=== PATIENT | male | born 1955 | race Caucasian/White ===

== ENCOUNTER 2019-05-30 12:22 | Emergency (ER) | payer OTHER ==
[2019-05-30 12:45] VITALS: TEMP 98.4
[2019-05-30] MEDS ORDERED: SODIUM CHLORIDE 0.9% 1,000 ML IV STA (13:30)
[2019-05-30] MEDS ORDERED: LABETALOL 5 MG/ML VIAL MDV IVP STA ×2 (13:33→15:37)
[2019-05-30 13:51] LABS: Basophils % (A) 1 %; Eosinophils # (A) 0.3 k/uL (0-0.7); Eosinophils % (A) 5 %; HCT 40.9 % (39.0-53.0); HGB 14.3 gm/dL (13.0-17.5); Lymphocytes % (A) 35 %; MCH 32.7 pg (25.0-35.0); MCV 93.6 fL (80.0-100.0); Mean Platelet Volume 6.9; Monocytes # (A) 0.3 k/uL (0-1.0); Monocytes % (A) 6 %; Neutrophils # (A) 2.9 k/uL (1.3-7.7); Neutrophils % (A) 51 %; Platelet Count 239 k/uL (150-450); RBC 4.37 m/uL (4.30-5.90); RDW 13.1 % (11.5-15.5); WBC 5.7 k/uL (3.8-10.6)
[2019-05-30 13:52] LABS: Appearance,Urine Clear (Clear); Bilirubin,Urine Negative (Negative); Blood,Urine Negative (Negative); Color,Urine Light Yellow; Glucose,Urine (UA) Negative (Negative); Ketones,Urine Negative (Negative); Leukocyte Esterase,Urine Negative (Negative); Nitrite,Urine Negative (Negative); PH, Urine 6.5 (5.0-8.0); Protein,Urine Negative (Negative); Specific Gravity,Urine 1.007 (1.001-1.035); Urobilinogen,Urine <2.0 mg/dL (<2.0)
--- NOTE | 2019-05-30 13:55 | XR ---
EXAMINATION TYPE: XR chest 2V DATE OF EXAM: 05/30/2019 COMPARISON: NONE TECHNIQUE: PA and lateral views submitted. HISTORY: Hypertension FINDINGS: The lungs are clear and there is no pneumothorax, pleural effusion, or focal pneumonia. Biapical pl eural. No overt failure. Inflation suggests COPD. Degenerative changes spine. Linear changes at the l ai bases most atelectasis. IMPRESSION: 1. COPD with basilar linear atelectasis favored over infiltrate.
[2019-05-30 13:58] LABS: Albumin 4.5 g/dL (3.5-5.0); Calcium 10.3 mg/dL (8.4-10.2); Potassium 4.4 mmol/L (3.5-5.1); Total Bilirubin 0.4 mg/dL (0.2-1.3); Total Protein 8.1 g/dL (6.3-8.2)
[2019-05-30] MEDS ORDERED: hydrALAZINE HCL 20 MG/ML 1 ML VIAL IVP STA (14:52)
--- NOTE | 2019-05-30 15:11 | ED ---
General Adult HPI - General Chief complaint: Recheck/Abnormal Lab/Rx Stated complaint: HTN sent by PCP Time Seen by Provider: 05/30/19 12:53 Source: patient Mode of arrival: ambulatory Limitations: no limitations - History of Present Illness Initial comments: Patient is a 63-year-old male presenting to emergency Department with complaints of elevated BP at his PCPs office today. PCP sent him to the ER. Patient admits to previously being on hypertensive medications approximately 6 months ago but his prescriptions have ran out and he moved to the area from [place] and has not found a PCP prior to today. Patient admits to a mild headache that he r ates a 2/10 today. Patient denies any blurry vision, chest pain, shortness of breath, abdominal pain, nausea, vomiting. Patient states his BP at the PCPs office was 210/100. Patient has no other complaints at this time. Upon arrival to ER, BP is 206/118, temp 98.4, pulse 69, 98% on room air, respirations 16. - Related Data Previous Rx's Medication Instructions Recorded Losartan [Cozaar] 50 mg PO DAILY 30 Days #30 tab 05/30/19 Metoprolol Tartrate [Lopressor] 50 mg PO BID 30 Days #60 tab 05/30/19 NIFEdipine XL [Procardia Xl] 90 mg PO DAILY 30 Days #30 tab 05/30/19 Allergies Allergy/AdvReac Type Severity Reaction Status Date / Time NSAIDS (Non-Steroidal AdvReac kidney Verified 05/30/19 13:07 Anti-Inflamma issues Review of Systems ROS Statement: Those systems with pertinent positive or pertinent negative responses have been documented in the HPI. ROS Other: All systems not noted in ROS Statement are negative. Past Medical History Past Medical History: Atrial Fibrillation, Hypertension Additional Past Medical History / Comment(s): Kidney stones History of Any Multi-Drug Resistant Organisms: None Reported Past Surgical History: Cholecystectomy, Tonsillectomy Past Psychological History: No Psychological Hx Reported, Depression Smoking Status: Current some day smoker Past Alcohol Use History: None Reported Past Drug Use History: None Reported General Exam - General Exam Comments Initial Comments: GENERAL: Well-appearing, well-nourished and in no acute distress. HEAD: Atraumatic, normocephalic. EYES: Pupils equal round and reactive to light, extraocular movements intact, sclera anicteric, conjunctiva are normal. ENT: TMs normal, nares patent, oropharynx clear without exudates. Moist mucous membranes. NECK: Normal range of motion, supple without lymphadenopathy or JVD. LUNGS: Breath sounds clear to auscultation bilaterally and equal. No wheezes rales or rhonchi. HEART: Regular rate and rhythm without murmurs, rubs or gallops. ABDOMEN: Soft, nontender, normoactive bowel sounds. No guarding, no rebound. No masses appreciated. : Deferred EXTREMITIES: Normal range of motion, no pitting or edema. No clubbing or cyanosis. NEUROLOGICAL: Cranial nerves II through XII grossly intact. Normal speech, normal gait. PSYCH: Normal mood, normal affect. SKIN: Warm, Dry, normal turgor, no rashes or lesions noted. Limitations: no limitations Course Vital Signs 05/30/19 05/30/19 05/30/19 12:40 13:00 13:30 Temperature 98.4 F Pulse Rate 69 73 70 Respiratory 16 15 16 Rate Blood Pressure 206/118 221/126 O2 Sat by Pulse 98 100 Oximetry 05/30/19 05/30/19 05/30/19 14:00 14:30 15:00 Temperature Pulse Rate 67 54 L 62 Respiratory 18 Rate Blood Pressure 216/128 208/116 200/113 O2 Sat by Pulse 100 Oximetry 05/30/19 05/30/19 05/30/19 15:15 15:30 15:48 Temperature Pulse Rate 60 64 66 Respiratory 16 16 Rate Blood Pressure 221/119 221/119 184/104 O2 Sat by Pulse 99 99 Oximetry 05/30/19 05/30/19 16:00 16:30 Temperature Pulse Rate 65 67 Respiratory 18 Rate Blood Pressure 184/104 208/120 O2 Sat by Pulse 100 Oximetry EKG Findings - EKG Comments: EKG Findings:: Ventricular rate 74, SD interval 154, QTC 448. Normal sinus rhythm. Voltage criteria for left ventricular hypertrophy. Medical Decision Making - Medical Decision Making Patient is a 63-year-old male presenting with hypertension sent from his PCP office today. Patient admits to being on prior hypertension medications however he's been out of them for approximate 6 months secondary to moving from [place] into the area. Patient was at his PCP office today with elevated blood pressure in the 220s so PCP sent him into the ER. BP on arrival was 206/118. Rest of vitals were normal. Patient's exam is unremarkable. Patient denies fever, chills, chest pain, shortness of breath, severe headache, blurry vision. Akiko ent was given fluids, labetalol and hydralazine. BP did improve slightly to 184/104. Patient expressed concern that he does not want to be admitted secondary to his requiring full-time care. Case was discussed with Dr. Hall. Patient will be restarted on his medications of Procardia, metoprolol, losartan and will follow-up with PCP in the next few days. Patient is in agreement with this plan his care. Patient is stable for discharge at this time. Strict return parameters were discussed with the patient he verbalizes understanding and agreement. - Lab Data Result diagrams: 05/30/19 13:00 05/30/19 13:00 Lab Results 05/30/19 05/30/19 05/30/19 Range/Units 13:00 13:00 13:00 WBC 5.7 (3.8-10.6) k/uL RBC 4.37 (4.30-5.90) m/uL Hgb 14.3 (13.0-17.5) gm/dL Hct 40.9 (39.0-53.0) % MCV 93.6 (80.0-100.0) fL MCH 32.7 (25.0-35.0) pg MCHC 35.0 (31.0-37.0) g/dL RDW 13.1 (11.5-15.5) % Plt Count 239 (150-450) k/uL Neutrophils % 51 % Lymphocytes % 35 % Monocytes % 6 % Eosinophils % 5 % Basophils % 1 % Neutrophils # 2.9 (1.3-7.7) k/uL Lymphocytes # 2.0 (1.0-4.8) k/uL Monocytes # 0.3 (0-1.0) k/uL Eosinophils # 0.3 (0-0.7) k/uL Basophils # 0.0 (0-0.2) k/uL Sodium 139 (137-145) mmol/L Potassium 4.4 (3.5-5.1) mmol/L Chloride 103 (98-107) mmol/L Carbon Dioxide 25 (22-30) mmol/L Anion Gap 11 mmol/L BUN 12 (9-20) mg/dL Creatinine 1.10 (0.66-1.25) mg/dL Est GFR (CKD-EPI)AfAm 83 (>60 ml/min/1.73 sqM) Est GFR (CKD-EPI)NonAf 72 (>60 ml/min/1.73 sqM) Glucose 92 (74-99) mg/dL Calcium 10.3 H (8.4-10.2) mg/dL Total Bilirubin 0.4 (0.2-1.3) mg/dL AST 23 (17-59) U/L ALT 19 L (21-72) U/L Alkaline Phosphatase 95 (38-126) U/L Total Protein 8.1 (6.3-8.2) g/dL Albumin 4.5 (3.5-5.0) g/dL Urine Color Light Yellow Urine Appearance Clear (Clear) Urine pH 6.5 (5.0-8.0) Ur Specific Bessie 1.007 (1.001-1.035) Urine Protein Negative (Negative) Urine Glucose (UA) Negative (Negative) Urine Ketones Negative (Negative) Urine Blood Negative (Negative) Urine Nitrite Negative (Negative) Urine Bilirubin Negative (Negative) Urine Urobilinogen <2.0 (<2.0) mg/dL Ur Leukocyte Esterase Negative (Negative) Disposition Clinical Impression: Hypertension Disposition: HOME SELF-CARE Condition: Stable Instructions (If sedation given, give patient instructions): Hypertension (ED) Additional Instructions: Please return to the Emergency Department if symptoms worsen or any other concerns, such as chest pain, severe headache, nausea, vomiting, difficulty breathing. Follow-up with PCP as discussed. Prescriptions: Losartan [Cozaar] 50 mg PO DAILY 30 Days #30 tab Metoprolol Tartrate [Lopressor] 50 mg PO BID 30 Days #60 tab NIFEdipine XL [Procardia Xl] 90 mg PO DAILY 30 Days #30 tab Is patient prescribed a controlled substance at d/c from ED?: No Referrals: Lacy Alvarado MD [Primary Care Provider] - 1-2 days
[2019-05-30] MEDS ORDERED: ONDANSETRON 4 MG/2 ML VIAL IVP STA (15:37)
[2019-05-30] MEDS ORDERED: SODIUM CHLORIDE 0.9% 500 ML 500 ML IV STA (15:37)
[2019-05-30 17:26] VITALS: BP 198/106; PULSE 70; RESP 16
== END 2019-05-30 17:25 | disposition home or self-care (01) ==
LOC: EC 12:22
DX: I10 Essential (primary) hypertension (principal); F17.200 Nicotine dependence, unspecified, uncomplicated; Z88.6 Allergy status to analgesic agent
CPT/HCPCS: 36415; 80053; 85025; 81003; 71046; 99284; 96374; 96375 ×2; 96376; 96361 ×4; J0360; J2405

== ENCOUNTER 2019-10-12 17:56 | Inpatient (IN) | payer OTHER ==
[~2019-10-12 17:56] MED LIST: IV FLUID CONTINUATION 500 ML IV ONE
[2019-10-12] MEDS ORDERED: SODIUM CHLORIDE 0.9% 1,000 ML IV STA (18:47)
[2019-10-12] MEDS ORDERED: SODIUM BICARB 8.4% 50 ML SYR (1 MEQ/ML) IV STA ×2 (18:48→19:49)
[2019-10-12] MEDS ORDERED: LORazepam 2 MG/ML INJ IV STA (19:08)
[2019-10-12 19:37] LABS: Basophils % (A) 0 %; Eosinophils % (A) 0 %; HCT 36.3 % (39.0-53.0); Lymphocytes # (A) 1.2 k/uL (1.0-4.8); Lymphocytes % (A) 12 %; MCHC 33.2 g/dL (31.0-37.0); MCV 96.3 fL (80.0-100.0); Mean Platelet Volume 8.5; Monocytes # (A) 0.3 k/uL (0-1.0); Monocytes % (A) 3 %; Neutrophils # (A) 8.8 k/uL (1.3-7.7); Neutrophils % (A) 85 %; Platelet Count 237 k/uL (150-450); RBC 3.76 m/uL (4.30-5.90); RDW 13.1 % (11.5-15.5); WBC 10.4 k/uL (3.8-10.6)
[2019-10-12] MEDS ORDERED: ASPIRIN 81 MG PO STA (19:49)
[2019-10-12] MEDS ORDERED: ATROPINE SULFATE 0.1 MG/ML 10ML SYRINGE IV STA (19:52)
[2019-10-12 20:00] LABS: ALT 42 U/L (4-49); AST 37 U/L (17-59); Acetaminophen <10.0 ug/mL; African American GFR (CKD) 66 (>60 ml/min/1.73 sqM); Albumin 4.1 g/dL (3.5-5.0); Alcohol <10 mg/dL; Alkaline Phosphatase 132 U/L (38-126); Anion Gap 11 mmol/L; Blood Urea Nitrogen 18 mg/dL (9-20); Carbon Dioxide 24 mmol/L (22-30); Chloride 99 mmol/L (98-107); Glucose 146 mg/dL (74-99); Non-African American GFR(CKD) 57 (>60 ml/min/1.73 sqM); Potassium 4.5 mmol/L (3.5-5.1); Salicylate <1.0 mg/dL; Sodium 134 mmol/L (137-145); Total Bilirubin 0.4 mg/dL (0.2-1.3); Total Protein 7.3 g/dL (6.3-8.2)
[2019-10-12] MEDS ORDERED: SODIUM CHLORIDE 0.9% 1,000 ML IV ONE (20:11)
[2019-10-12] MEDS ORDERED: HEPARIN SODIUM,PORCINE 5,000 UNIT/ML 1 ML VIAL IV ONE (20:12)
[2019-10-12] MEDS ORDERED: HEPARIN SODIUM,PORCINE 5,000 UNIT/ML 1 ML VIAL IV PRN (20:12)
--- NOTE | 2019-10-12 20:13 | ED ---
General Adult HPI - General Chief complaint: Recheck/Abnormal Lab/Rx Stated complaint: poss allergic rxn, shaking Time Seen by Provider: 10/12/19 18:37 Source: patient Mode of arrival: ambulatory Limitations: no limitations - History of Present Illness Initial comments: Dictation was produced using [employer] dictation software. please excuse any gramm atical, word or spelling errors. Chief Complaint: Patient is 64-year-old male presents today with epigastric pain. History of Present Illness: 64-year-old male who presents with agitation and restlessness and epigastric pain. Patient says that his epigastric pain feels like heartburn. Patient takes Kratom powder. He believes his symptoms are all from this herbal supplement. Patient's been taking the supplement for several months now. He states that he hasn't had any ill effects from this area today he has been complaining of epigastric pain. His concern that it is heartburn. Denies any diaphoresis. No radiation of symptoms. Patient states he has not had heartburn before. He does have a history of atrial fibrillation. no history of coronary artery disease. Patient does smoke. Reports he is trying to quit. Denies any associated diaphoresis. He does feel slightly nauseous however no vomiting. The ROS documented in this emergency department record has been reviewed and confirmed by me. Those systems with pertinent positive or negative responses have been documented in the HPI. All other systems are other negative and/or noncontributory. PHYSICAL EXAM: General Impression: Alert and oriented x3, tremulous HEENT: Normocephalic atraumatic, extra-ocular movements intact, pupils equal and reactive to light bilaterally, mucous membranes moist. Cardiovascular: Heart regular rate and rhythm, S1&S2 audible, no murmurs, rubs or gallops Chest: Lungs clear to auscultation bilaterally, no rhonchi, no wheeze, no rales Abdomen: Bowel sounds present, abdomen soft, non-tender, non-distended, no organomegaly Musculoskeletal: Pulses present and equal in all extremities, no peripheral edema Motor: no focal deficits noted Neurological: CN II-XII grossly intact, no focal motor or sensory deficits noted Skin: Intact with no visualized rashes Psych: Normal affect and mood ED course: 64-year-old male presents with agitation, heartburn symptoms. As upon arrival shows heart rate of 57, rest of vital signs within acceptable limits. There is concern that patient's symptoms are secondary to this herbal supplement. His initial EKG showed QRS of 120 that appears to be new. Poison controls contacted and recommended patient be given bicarb to see if he has any effect in patients QRS though this herbal supplement is not known to cause QRS widening. He reports that he's been taking his medication for several months without any ill effects.. Patient became progressively bradycardic with a heart rate in the 50s. His blood pressure did start to decrease. Patient states his heartburn symptoms are getting worse. Repeat EKG was performed showing findings of acute ST segment elevation MO. Patient had ST elevation in the high lateral leads with reciprocal changes in 3 and aVF. These appear to be dynamic changes when compared to his initial EKG upon arrival. Code STEMI was paged. Discussed patient is a Dr. Joelle will be taking patient to the lab[facility]. Pending discussion with sound physician group. Patient treated with aspirin and heparin. EKG interpretation: Ventricular rate 44, sinus bradycardia,. 170, QS 122, QTc 439, ST segment elevation in the high lateral leads with reciprocal changes in 3 and aVF. - Related Data Previous Rx's Medication Instructions Recorded Losartan [Cozaar] 50 mg PO DAILY 30 Days #30 tab 05/30/19 Metoprolol Tartrate [Lopressor] 50 mg PO BID 30 Days #60 tab 05/30/19 NIFEdipine XL [Procardia Xl] 90 mg PO DAILY 30 Days #30 tab 05/30/19 Allergies Allergy/AdvReac Type Severity Reaction Status Date / Time NSAIDS (Non-Steroidal AdvReac kidney Verified 10/12/19 18:12 Anti-Inflamma issues Review of Systems ROS Statement: Those systems with pertinent positive or pertinent negative responses have been documented in the HPI. ROS Other: All systems not noted in ROS Statement are negative. Past Medical History Past Medical History: Atrial Fibrillation, Hypertension Additional Past Medical History / Comment(s): Kidney stones, chronic back pain History of Any Multi-Drug Resistant Organisms: None Reported Past Surgical History: Cholecystectomy, Tonsillectomy Past Psychological History: No Psychological Hx Reported, Depression Smoking Status: Current some day smoker Past Alcohol Use History: None Reported Past Drug Use History: None Reported General Exam Limitations: no limitations Course Vital Signs 10/12/19 10/12/19 10/12/19 18:07 18:22 18:30 Temperature 97.5 F L Pulse Rate 57 L 53 L Respiratory 20 18 Rate Blood Pressure 107/67 130/73 O2 Sat by Pulse 96 92 L 91 L Oximetry 10/12/19 10/12/19 10/12/19 18:40 18:50 19:00 Temperature Pulse Rate 54 L 49 L 48 L Respiratory 13 20 19 Rate Blood Pressure 52/39 88/55 88/55 O2 Sat by Pulse 88 L 88 L 93 L Oximetry 10/12/19 10/12/19 10/12/19 19:10 19:33 19:54 Temperature Pulse Rate 43 L 42 L 42 L Respiratory 20 18 18 Rate Blood Pressure 128/72 71/41 100/58 O2 Sat by Pulse 92 L 90 L 94 L Oximetry 10/12/19 10/12/19 20:09 20:16 Temperature 97.7 F Pulse Rate 46 L 45 L Respiratory 18 18 Rate Blood Pressure 107/74 85/57 O2 Sat by Pulse 91 L 92 L Oximetry Medical Decision Making - Lab Data Result diagrams: 10/12/19 19:22 10/12/19 19:22 Lab Results 10/12/19 10/12/19 10/12/19 Range/Units 19:22 19:22 19:22 WBC 10.4 (3.8-10.6) k/uL RBC 3.76 L (4.30-5.90) m/uL Hgb 12.0 L (13.0-17.5) gm/dL Hct 36.3 L (39.0-53.0) % MCV 96.3 (80.0-100.0) fL MCH 32.0 (25.0-35.0) pg MCHC 33.2 (31.0-37.0) g/dL RDW 13.1 (11.5-15.5) % Plt Count 237 (150-450) k/uL Neutrophils % 85 % Lymphocytes % 12 % Monocytes % 3 % Eosinophils % 0 % Basophils % 0 % Neutrophils # 8.8 H (1.3-7.7) k/uL Lymphocytes # 1.2 (1.0-4.8) k/uL Monocytes # 0.3 (0-1.0) k/uL Eosinophils # 0.0 (0-0.7) k/uL Basophils # 0.0 (0-0.2) k/uL Sodium 134 L (137-145) mmol/L Potassium 4.5 (3.5-5.1) mmol/L Chloride 99 (98-107) mmol/L Carbon Dioxide 24 (22-30) mmol/L Anion Gap 11 mmol/L BUN 18 (9-20) mg/dL Creatinine 1.33 H (0.66-1.25) mg/dL Est GFR (CKD-EPI)AfAm 66 (>60 ml/min/1.73 sqM) Est GFR (CKD-EPI)NonAf 57 (>60 ml/min/1.73 sqM) Glucose 146 H (74-99) mg/dL Osmolality 290 (280-301) mosm/kg Plasma Lactic Acid Vinny 2.5 H* (0.7-2.0) mmol/L Calcium 9.0 (8.4-10.2) mg/dL Total Bilirubin 0.4 (0.2-1.3) mg/dL AST 37 (17-59) U/L ALT 42 (4-49) U/L Alkaline Phosphatase 132 H (38-126) U/L Total Protein 7.3 (6.3-8.2) g/dL Albumin 4.1 (3.5-5.0) g/dL Salicylates <1.0 mg/dL Acetaminophen <10.0 ug/mL Serum Alcohol <10 mg/dL Critical Care Time Critical Care Time: Yes (32) Disposition Clinical Impression: STEMI (ST elevation myocardial infarction) Disposition: ADMITTED IP TO THIS [facility] Condition: Critical Referrals: Brown Millan [Primary Care Provider] - 1-2 days Decision Time: 20:32
[2019-10-12] MEDS ORDERED: HEPARIN SOD,PORK IN 0.45% NACL 25,000 UNIT in 0.45% NACL 1 250ML.BAG IV SCH (20:15)
[2019-10-12] MEDS ORDERED: LIDOCAINE 1% INJ 10MG/ML (20 ML MDV) ONE (20:24)
[2019-10-12] MEDS ORDERED: NALOXONE 0.4 MG/ML 1 ML VIAL IV PRN (20:28)
--- NOTE | 2019-10-12 20:29 | XR ---
EXAMINATION TYPE: XR chest 1V portable DATE OF EXAM: 10/12/2019 COMPARISON: 05/30/2019 HISTORY: Chest pain TECHNIQUE: FINDINGS: There is no heart failure. There is some coarsening of the interstitial markings there is n o pleural effusion. There are no hilar masses. IMPRESSION: Mild pulmonary fibrotic changes. Lung markings increased compared to old exam. No heart f ailure seen.
[2019-10-12] MEDS ORDERED: LIDOCAINE 1% INJ 10MG/ML (20 ML MDV) SQ ONE (20:42)
[2019-10-12] MEDS ORDERED: SODIUM CHLORIDE 0.9% 1,000 ML IV SCH (21:00)
[2019-10-12] MEDS ORDERED: RX INFO: IV CONTRAST WAS GIVEN 1 EACH MISC MISCELLANE PRN (21:00)
[2019-10-12] MEDS ORDERED: IOPAMIDOL-370 125ML BTL INJ ONE (21:03)
--- NOTE | 2019-10-12 21:10 | P.CRDCN ---
History of Present Illness Consult date: 10/12/19 Chief complaint: Chest pain History of present illness: This is a 62-year-old gentleman who is somewhat poor historian presented to the emergency room because he was not feeling well. The initial presentation was with agitation as well as restlessness. Subsequently the patient started experiencing epigastric discomfort. He described as a heartburn. No radiation to the arms, neck, shoulders, or back. An EKG was performed in the emergency department and that was called as acute ST segment elevation. Because of that the general labor was called and an emergent heart catheterization was performed and revealed mild nonobstructive coronary artery disease. The left ventricular end- diastolic pressure was elevated at 20 mmHg. The procedure was performed without any complication. Beside that and in the emergency department as well as in the cardiac general labor the patient has been bradycardic with a heart rate in the 40s and also with marginally low blood pressure in the 90s millimeters mercury. At home he was receiving metoprolol which is on hold at this point. He is known to have history of paroxysmal atrial fibrillation as well as history of smoking as well as history of drug abuse. By the end of the procedure, the patient was c hest pain-free. The chest x-ray did not show any acute abnormalities. The blood work over old came in to be unremarkable except for plasma lactic acid at 2.5. The WBC as well as hemoglobin are within normal limits. Past Medical History Past Medical History: Atrial Fibrillation, Hypertension Additional Past Medical History / Comment(s): Kidney stones, chronic back pain History of Any Multi-Drug Resistant Organisms: None Reported Past Surgical History: Cholecystectomy, Tonsillectomy Past Psychological History: No Psychological Hx Reported, Depression Smoking Status: Current some day smoker Past Alcohol Use History: None Reported Past Drug Use History: None Reported Medications and Allergies Home Medications Medication Instructions Recorded Confirmed Type Losartan [Cozaar] 50 mg PO DAILY 30 Days #30 tab 05/30/19 Rx Metoprolol Tartrate [Lopressor] 50 mg PO BID 30 Days #60 tab 05/30/19 Rx NIFEdipine XL [Procardia Xl] 90 mg PO DAILY 30 Days #30 tab 05/30/19 Rx Allergies Allergy/AdvReac Type Severity Reaction Status Date / Time NSAIDS (Non-Steroidal AdvReac kidney Verified 10/12/19 18:12 Anti-Inflamma issues Physical Exam Vitals: Vital Signs Temp Pulse Resp BP Pulse Ox 02/07/20 20:16 45 L 18 85/57 92 L 10/12/19 20:09 97.7 F 46 L 18 107/74 91 L 10/12/19 19:54 42 L 18 100/58 94 L 10/12/19 19:33 42 L 18 71/41 90 L 10/12/19 19:10 43 L 20 128/72 92 L 10/12/19 19:00 48 L 19 88/55 93 L 10/12/19 18:50 49 L 20 88/55 88 L 10/12/19 18:40 54 L 13 52/39 88 L 10/12/19 18:30 53 L 18 130/73 91 L 10/12/19 18:22 92 L 10/12/19 18:07 97.5 F L 57 L 20 107/67 96 Intake and Output 10/12/19 10/12/19 10/12/19 06:59 14:59 22:59 Intake Total 75 Balance 75 Intake: IV 75 Other: Weight 102.058 kg - Constitutional General appearance: no acute distress - Respiratory Respiratory: bilateral: CTA - Cardiovascular Rhythm: regular Heart sounds: normal: S1, S2 Results 10/12/19 19:22 10/12/19 19:22 Cardiac Enzymes 10/12/19 10/12/19 Range/Units 19:22 19:22 AST 37 (17-59) U/L Troponin I <0.012 (0.000-0.034) ng/mL CBC 10/12/19 Range/Units 19:22 WBC 10.4 (3.8-10.6) k/uL RBC 3.76 L (4.30-5.90) m/uL Hgb 12.0 L (13.0-17.5) gm/dL Hct 36.3 L (39.0-53.0) % Plt Count 237 (150-450) k/uL Comprehensive Metabolic Panel 10/12/19 Range/Units 19:22 Sodium 134 L (137-145) mmol/L Potassium 4.5 (3.5-5.1) mmol/L Chloride 99 (98-107) mmol/L Carbon Dioxide 24 (22-30) mmol/L BUN 18 (9-20) mg/dL Creatinine 1.33 H (0.66-1.25) mg/dL Glucose 146 H (74-99) mg/dL Calcium 9.0 (8.4-10.2) mg/dL AST 37 (17-59) U/L ALT 42 (4-49) U/L Alkaline Phosphatase 132 H (38-126) U/L Total Protein 7.3 (6.3-8.2) g/dL Albumin 4.1 (3.5-5.0) g/dL Current Medications Generic Name Dose Route Start Last Admin Trade Name Freq PRN Reason Stop Dose Admin Heparin Sodium (Porcine) 0 unit 10/12/19 20:12 Heparin IV PER PROTOCOL PRN Low PTT Protocol Sodium Chloride 1,000 mls @ 999 mls/hr 10/12/19 20:11 10/12/19 20:11 Saline 0.9% IV 10/12/19 21:11 999 mls/hr .Q1H1M ONE Administration Heparin Sodium/Sodium Chloride 250 mls @ 10 mls/hr 10/12/19 20:15 25,000 unit/ Sodium Chloride IV .Q24H JOSEF Protocol 9.798 UNITS/KG/HR Sodium Chloride 1,000 mls @ 75 mls/hr 10/12/19 21:00 Saline 0.9% IV 10/13/19 02:01 .[id number] [facility] Miscellaneous Information 1 each 10/12/19 21:00 Rx Info: Iv Contrast Was Given MISCELLANE 10/14/19 21:00 DAILY PRN Per Protocol Naloxone HCl 0.2 mg 10/12/19 20:28 Narcan IV Q2M PRN Opioid Reversal Intake and Output 10/12/19 10/12/19 10/12/19 06:59 14:59 22:59 Intake Total 75 Balance 75 Intake: IV 75 Other: Weight 102.058 kg Patient Weight 10/13/19 06:59 Weight 102.058 kg 10/12/19 19:22 10/12/19 19:22 Assessment and Plan Assessment: Assessment #1 epigastric discomfort #2 sinus bradycardia #3 hypotension #4 paroxysmal atrial fibrillation #5 history of smoking Plan #1 an emergent heart catheterization revealed might CAD #2 continue holding any AV shaneka jose roberto agents #3 obtain an echocardiogram #4 check TSH and free T4 #4 standard groin care #5 follow-up with the patient
--- NOTE | 2019-10-12 22:58 | CC ---
CARDIAC CATHETERIZATION REPORT October 12, 2019. PERFORMING PHYSICIAN: Jose Eduardo Lai MD. PROCEDURE PERFORMED: 1. Selective right and left coronary angiogram. 2. Left heart catheterization. INDICATION: This is a 64-year-old gentleman with history of paroxysmal atrial fibrillation as well as history of smoking and history of drug abuse, as well, who presented to the hospital complaining of chest discomfort. He was seen in the emergency department and evaluated where an EKG was performed and revealed and the EKG in the emergency department was called for acute ST-elevation myocardial infarction. Because of that, the patient was taken emergently to the cardiac electronic lab technician. APPROACH: Right common femoral artery. COMPLICATION: None. LEVEL OF SEDATION: Moderate with sedation length of 14 minutes. PROCEDURE DESCRIPTION: After obtaining an informed consent, the patient was brought to the cardiac electronic lab technician. The right common femoral artery was cannulated using micropuncture technique, the micropuncture wire passed easily then I placed a 6-Namibian sheath 11 cm at the right common femoral artery. I did perform selective right and left coronary angiogram using JR4 and JL3.5 catheters. The JR4 and JL4 catheters. Left heart catheterization was performed using JR4 catheter which crossed the aortic valve then I did pullback across aortic valve. The procedure was completed without any complication. SELECTIVE CORONARY ANGIOGRAM: 1. The right coronary artery is a large caliber vessel and it is a dominant vessel. The RCA has mild disease in the midportion. Distally bifurcates into PDA and PLV branches both appeared to be angiographically normal. 2. The left main is angiographically normal. It bifurcates into LCX and LAD. 3. The LCX is a large caliber vessel. It is a nondominant vessel. The proximal circ appeared to be normal and gives rise into a large OM branch which appeared to have mild disease only. The circumflex continues after that as a small-caliber vessel in the AV groove. 4. The LAD: The LAD appeared to be angiographically normal. In the very proximal portion gives rise into a large the into a diagonal branch which seems to be angiographically normal and in the midportion gives rise into a second diagonal branch which seems to be angiographically normal. HEMODYNAMIC: The LVEDP was 20 mmHg without significant gradient across aortic valve. CONCLUSION: 1. Mild nonobstructive coronary artery disease. 2. Elevated left ventricular end-diastolic pressure. POSTPROCEDURE MANAGEMENT: 1. Medical treatment. 2. Follow up with the patient. MMZAYDA / YVONNEN: [id number] /
[2019-10-13] MEDS ORDERED: ZOLPIDEM 5 MG TAB PO SCH
--- NOTE | 2019-10-13 00:22 | P.HPIM ---
History of Present Illness H&P Date: 10/12/19 Chief Complaint: agitation and restless, heart burn 64-year-old male with history of hypertension Patient reports that he came into the hospital due to feeling agitated and r estless. He was also having some heartburn reported burning sensation retrosternally extending all the way from the stomach up to his throat, rated the pain as 8 out of 10 in severity not associated with any nausea vomiting dizziness lightheadedness shortness of breath or sweating. Patient denies any cardiac history in the past. His initial EKG in the ED which is not available for my review at this time showed wide QRS patient takes kratom powder , that he tolerated for many months now, denies overdosing. poison control contacted and recommended giving patient bicarb and repeat EKG. at that point his vital signs were stable However later on during that's ED course he developed bradycardia and his blood pressure starting going down. A repeat EKG suggested ST depression in lead [address] elevation in leads 1 and 2. 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 Cath was performed showed nonobstructive minimal disease. Currently patient continues to be bradycardic and blood pressure low with systolic in the 90s. Patient is given IV fluid however he is asymptomatic denies any chest pain or trouble breathing denies any lightheadedness or dizz iness. There is also suspicion of IV drug abuse however patient is not clearly admitting 2 that we are still waiting for urine drug screen to be performed. Cardiology recommended to avoid AV shaneka blockers at this time and to continue with supportive care Patient also found to have elevated lactic acid and slightly elevated creatinine He tolerated procedure well, currently only complains of difficulty sleeping Review of Systems Pertinent positives as noted in HPI. All other systems were reviewed and are negative Past Medical History Past Medical History: Atrial Fibrillation, Hypertension Additional Past Medical History / Comment(s): Kidney stones, chronic back pain History of Any Multi-Drug Resistant Organisms: None Reported Past Surgical History: Cholecystectomy, Tonsillectomy Past Psychological History: No Psychological Hx Reported, Depression Smoking Status: Current some day smoker Past Alcohol Use History: None Reported Past Drug Use History: None Reported - Past Family History Father History Unknown: Yes Mother History Unknown: Yes Medications and Allergies Home Medications Medication Instructions Recorded Confirmed Type Losartan [Cozaar] 50 mg PO DAILY 30 Days #30 tab 05/30/19 10/12/19 Rx Metoprolol Tartrate [Lopressor] 50 mg PO BID 30 Days #60 tab 05/30/19 10/12/19 Rx NIFEdipine XL [Procardia Xl] 90 mg PO DAILY 30 Days #30 tab 05/30/19 10/12/19 Rx buPROPion HCL [buPROPion HCL SR] 150 mg PO BID 10/12/19 10/12/19 History Allergies Allergy/AdvReac Type Severity Reaction Status Date / Time NSAIDS (Non-Steroidal AdvReac kidney Verified 10/12/19 23:13 Anti-Inflamma issues Physical Exam Vitals: Vital Signs Temp Pulse Resp BP Pulse Ox 10/12/19 20:16 45 L 18 85/57 92 L 10/12/19 20:09 97.7 F 46 L 18 107/74 91 L 10/12/19 19:54 42 L 18 100/58 94 L 10/12/19 19:33 42 L 18 71/41 90 L 10/12/19 19:10 43 L 20 128/72 92 L 10/12/19 19:00 48 L 19 88/55 93 L 10/12/19 18:50 49 L 20 88/55 88 L 10/12/19 18:40 54 L 13 52/39 88 L 10/12/19 18:30 53 L 18 130/73 91 L 10/12/19 18:22 92 L 10/12/19 18:07 97.5 F L 57 L 20 107/67 96 Intake and Output 10/12/19 10/12/19 10/12/19 06:59 14:59 22:59 Intake Total 75 Balance 75 Intake: IV 75 Other: Weight 102.058 kg Constitutional: No acute distress, conversant, pleasant Eyes: Anicteric sclerae, moist conjunctiva, no lid-lag Pupils equal round reactive to light ENMT: NC/AT Oropharynx clear, no erythema, exudates Neck: Supple, FROM, no masses, or JVD No carotid bruits No thyromegaly Lungs: Clear to auscultation Clear to percussion Normal respiratory effort, no accessory muscle use Cardiovascular: Heart regular in rate and rhythm, No murmurs, gallops, or rubs No peripheral edema Abdominal: Soft Nontender, no guarding, rebound or rigidity Abdomen moving with respiration Normoactive bowel sounds No hepatomegaly, No splenomegaly No palpable mass No abdominal wall hernia noted Skin: Normal temperature, tone, texture, turgor No induration No subcutaneous nodules No rash, lesions No ulcers Extremities: Right groin examined site of left heart cath unremarkable no ecchymosis no swelling no bruit. No digital cyanosis No clubbing Pedal pulses intact and symmetrical Radial pulses intact and symmetrical No calf tenderness Psychiatric: Alert and oriented to person, place and time Appropriate affect fair judgement Neuro Muscles Strength 5/5 in all 4 extremities Sensation to light touch grossly present throughout Cranial nerves II-XII grossly intact No focal sensory deficits Lymphatics: no palpable cervical or supraclavicular , or inguinal lymph nodes Results CBC & Chem 7: 10/12/19 19:22 10/12/19 19:22 Labs: Abnormal Lab Results - Last 24 Hours (Table) 10/12/19 10/12/19 10/12/19 Range/Units 19:22 19:22 19:22 RBC 3.76 L (4.30-5.90) m/uL Hgb 12.0 L (13.0-17.5) gm/dL Hct 36.3 L (39.0-53.0) % Neutrophils # 8.8 H (1.3-7.7) k/uL Sodium 134 L (137-145) mmol/L Creatinine 1.33 H (0.66-1.25) mg/dL Glucose 146 H (74-99) mg/dL Plasma Lactic Acid Vinny 2.5 H* (0.7-2.0) mmol/L Alkaline Phosphatase 132 H (38-126) U/L Assessment and Plan Assessment: 64-year-old male with hypertension. Questionable drug abuse. Patient takes kratom powder at home for many months now. Comes in today due to agitation feeling restless and heartburn. 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 due to suspected STEMI however his left heart cath showed minimal nonobstructive coronary artery disease him a cardiology recommended medical therapy and to avoid AV shaneka blockers at this time Continue with supportive care and monitoring overnight anticipated length of stay less than two midnight Plan: bradycardia and hypotension EKG with acute ST changes possible Kratom poweder overdose lactic acidosis left heart cath showed , minimal non obstructive disease cardiology following hold AV shaneka blockers IVF hydration cardiac monitoring hold TRIPP inhibitor due to hypotension and slightly elevated renal function tobacco smoking counseled to quit smoking nicotine replacement therapy offered mild anemia paitent reported positive cologuard test at home plans for OP colonoscopy, patient never had one in his life DVT ppx heparin sc tid CODE STATUS:full code Discussed with: Patient, ER, RN Anticipated length of stay < than [address]: home A total of 60 minutes was spent on the care of this complex patient more than 50% of the time was spent in counseling and care coordination.
[2019-10-13 00:46] LABS: Amphetamine Screen,Urine Not Detected (NotDetected); Barbiturate Screen,Urine Not Detected (NotDetected); Benzodiazepines Screen,Urine Detected (NotDetected); Cocaine Screen,Urine Not Detected (NotDetected); Methadone Screen, Urine Not Detected (NotDetected); Opiate Screen,Urine Not Detected (NotDetected); Oxycodone Screen, Urine Not Detected (NotDetected); Phencyclidine Screen,Urine Not Detected (NotDetected); Tricyclic Antidepressant,Urine Not Detected (NotDetected); Urn Cannabinoid Scrn Not Detected (NotDetected)
[2019-10-13] MEDS: PANTOPRAZOLE 40 MG TABLET PO SCH ×3 (01:10→17:40)
[2019-10-13] MEDS ORDERED: LORazepam 0.5 MG TAB PO ONE (01:53)
--- NOTE | 2019-10-13 02:11 | XR ---
EXAMINATION TYPE: XR chest 1V portable DATE OF EXAM: 10/13/2019 COMPARISON: Yesterday HISTORY: Short of breath TECHNIQUE: FINDINGS: Heart is normal. Lungs are clear of infiltrate. There is small linear density in the left l ower lobe. There is no pleural effusion. There are no hilar masses. There are chest leads. IMPRESSION: Mild subsegmental atelectasis left lower lobe slightly more than yesterday. Normal heart.
[2019-10-13] MEDS ORDERED: LORazepam 1 MG TAB PO STA (02:18)
[2019-10-13] MEDS ORDERED: IPRATROPIUM-ALBUTEROL 3 ML NEB INHALATION PRN (02:19)
[2019-10-13] MEDS ORDERED: LORazepam 1 MG TAB PO PRN (02:19)
[2019-10-13 07:04] LABS: African American GFR (CKD) >90 (>60 ml/min/1.73 sqM); Anion Gap 8 mmol/L; Blood Urea Nitrogen 21 mg/dL (9-20); Calcium 8.5 mg/dL (8.4-10.2); Carbon Dioxide 26 mmol/L (22-30); Chloride 102 mmol/L (98-107); Glucose 92 mg/dL (74-99); Non-African American GFR(CKD) 80 (>60 ml/min/1.73 sqM); Potassium 4.2 mmol/L (3.5-5.1); Sodium 136 mmol/L (137-145)
[2019-10-13] MEDS: NICOTINE 14MG/24HR PATCH TRANSDERM SCH (08:57)
[2019-10-13] MEDS ORDERED: LORazepam 0.5 MG TAB PO PRN (08:58)
[2019-10-13] MEDS ORDERED: BUMETANIDE 0.25 MG/ML 4 ML VIAL IVP STA (08:59)
--- NOTE | 2019-10-13 09:11 | P.PN ---
Subjective Chart was reviewed patient was seen and examined. Patient was admitted last night with shortness of breath found EKG changes consistent with ST segment elevations in leads 1 and aVL and taken to cardiac catheterization which showed only mild nonobstructive disease. Other problems on presentation was slightly elevated lactic acid and creatinine which will normalized with IV fluids. Overnight patient respiratory status worsened and he had to be placed on high flow nasal cannula. No new events overnight otherwise. This morning I'm seeing the patient he is up in the bed. He is feeling quite comfortable and does not report any significant problems. He states that he is not short of breath does not have any chest pain. Further questioning he reports couple weeks of exertional dyspnea, cough productive of yellow sputum and occasional mild leg swelling. He does stent to prop the head of his bed up a little bit. He denies any episodes of chest pain. Patient has significant history of smoking. He denies any drug use and denies any recent history of drinking. Objective - Vital Signs Vital signs: Vital Signs Temp 98.0 F 10/13/19 07:47 Pulse 63 10/13/19 07:47 Resp 20 10/13/19 07:47 BP 156/88 10/13/19 07:47 Pulse Ox 96 10/13/19 08:49 Intake & Output 10/12/19 10/13/19 10/13/19 18:59 06:59 18:59 Intake Total 75 Output Total 400 1400 Balance 75 -400 -1400 Weight 10.387 kg 104.6 kg Intake: IV 75 Output: Urine 400 1400 Other: Voiding Method Urinal Urinal # Voids 1 - Exam Vital Signs: I have reviewed the vital signs. GENERAL: Well-nourished, Well-developed , no apparent distress, cooperative Eyes: PERRL, extraoculry movements intact, clear conjunctiva Head: : Atraumatic external nose and ears, oropharyngeal mucosa is moist without lesions or exudates Neck: Symmetric, trachea midline, No thyromegaly, no masses or neck vain pulsation, no neck rigidity CVS: +S1/S2, No murmurs or gallops. Peripheral pulses 2+ and equal in all extremities. RESP: Unlabored respiratory effort. Breath sounds are diminished bilaterally, right lower lung villafuerte have crackles in the bases with few expiratory wheezes and rhonchi on the left is mostly diminished without significant wheezing Abdomen: Bowel sounds present in all 4 quadrants, Soft to palpation, Nontender/Nondistended, No hepatosplenomegaly, no hernias or masses, no CVA tnderness Musculoskeletal: Extremities w/o deformity, No cyanosis or clubbing, no joint swelling Skin: Warm, Dry. 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, motor strenght 5/5 i upper and lower extremities, no clonus, patellar DTRs 2+ and sympetrical Psych: Awake, Alert, & Oriented (AAO) x3 Appropriate mood and affect - Labs CBC & Chem 7: 10/12/19 19:22 10/13/19 05:40 Labs: Abnormal Lab Results - Last 24 Hours (Table) 10/12/19 10/12/19 10/12/19 Range/Units 19:22 19:22 19:22 RBC 3.76 L (4.30-5.90) m/uL Hgb 12.0 L (13.0-17.5) gm/dL Hct 36.3 L (39.0-53.0) % Neutrophils # 8.8 H (1.3-7.7) k/uL Sodium 134 L (137-145) mmol/L BUN (9-20) mg/dL Creatinine 1.33 H (0.66-1.25) mg/dL Glucose 146 H (74-99) mg/dL Plasma Lactic Acid Vinny 2.5 H* (0.7-2.0) mmol/L Alkaline Phosphatase 132 H (38-126) U/L U Benzodiazepines Scrn (NotDetected) 10/13/19 10/13/19 Range/Units 00:06 05:40 RBC (4.30-5.90) m/uL Hgb (13.0-17.5) gm/dL Hct (39.0-53.0) % Neutrophils # (1.3-7.7) k/uL Sodium 136 L (137-145) mmol/L BUN 21 H (9-20) mg/dL Creatinine (0.66-1.25) mg/dL Glucose (74-99) mg/dL Plasma Lactic Acid Vinny (0.7-2.0) mmol/L Alkaline Phosphatase (38-126) U/L U Benzodiazepines Scrn Detected H (NotDetected) Assessment and Plan Assessment: 1. Acute hypoxic respiratory failure Ronco to be multifactorial in a patient who is current smoker with productive cough, obesity, large volume IV fluid resuscitation, possible component of CHF I wonder if patient has been hypoxic for a longer period of time and had elevated lactic acid significantly changes with that At this point of time his renal function has normalized a history of good urine output We will stop his IV fluids Give dose of Bumex *Breathing treatments, Pulmicort and doxycycline giving the increased purulence in his sputum Increase activity up in the chair incentive spirometry Discontinue VQ scan, we will order stat d-dimer. If significantly elevated we'll proceed with CTA. His Well'sa score is actually quite low right now. He might need a CT of the chest at some point to evaluate for the presence of the atelectasis in the right lobe to rule out any cancers or masses. Patient will need home oxygen evaluation and discharge 2. Acute kidney injury His creatinine is stabbing lysed is normal today and he has good urine output I will obtain urinalysis to evaluate for any presence of proteinuria or RBCs as I don't see any clear-cut reason for his a candidate 3. Non Obstructive coronary artery disease Cardiology following 4. Lactic acidosis Resolved with IV fluids and oxygen supplementation 5. Hypertension Blood pressures the second right now and continue home medications with hold losartan 6. Anxiety and depression Continue home bupropion We will try to minimize use of benzodiazepines here in the hospital
[2019-10-13] MEDS: DOXYCYCLINE 100 MG CAP PO SCH ×2 (09:51→19:44)
[2019-10-13] MEDS: buPROPion SR 150 MG TABLET.ER PO SCH ×2 (09:55→19:44)
[2019-10-13 10:43] LABS: Appearance,Urine Clear (Clear); Bilirubin,Urine Negative (Negative); Blood,Urine Negative (Negative); Color,Urine Colorless; Glucose,Urine (UA) Negative (Negative); Ketones,Urine Negative (Negative); Leukocyte Esterase,Urine Negative (Negative); Nitrite,Urine Negative (Negative); PH, Urine 7.5 (5.0-8.0); Protein,Urine Negative (Negative); Specific Gravity,Urine 1.005 (1.001-1.035); Urobilinogen,Urine <2.0 mg/dL (<2.0)
--- NOTE | 2019-10-13 11:52 | CT ---
EXAMINATION TYPE: CT angio chest DATE OF EXAM: 10/13/2019 11:23 AM COMPARISON: None. HISTORY: Shortness of breath. CT DLP: 486.4 mGycm Automated exposure control for dose reduction was used. CONTRAST: CTA scan of the thorax is performed with IV Contrast, patient injected with 100 mL of Isovue 370, pul monary embolism protocol. . FINDINGS: There is atelectatic change at the lung bases. There is no significant axillary, mediastinal or hilar adenopathy. There is no evidence of pulmonary embolus. The aorta is normal in caliber without evidence of dissection. There is no pleural or pericardial fluid. The heart is mildly enlarged. There is a small sliding hiatal hernia. There is low-attenuation lesions in the upper pole of both kidneys. These likely represent cysts. Thi s could be confirmed with ultrasound. IMPRESSION: THIS EXAMINATION IS NEGATIVE FOR PULMONARY EMBOLUS.
--- NOTE | 2019-10-13 15:21 | P.CNPUL ---
History of Present Illness Consult date: 10/13/19 Requesting physician: Clif Sanderson Reason for consult: dyspnea, hypoxemia Chief complaint: Agitation, anxiety, shortness of breath History of present illness: This is a pleasant 64-year-old gentleman who follows with Dr. Millan as his primary care provider. He has a history of paroxysmal atrial fibrillation, hypertension, chronic back pain, nephrolithiasis. He has chronic and ongoing tobacco dependence. He has also gained approximately 30 pounds in the past several months. He had not been seen by a laboratory equipment installer in the past. No home inhalers. No home oxygen. He had been utilizing a herbal supplements called Kratom powder. Yesterday he was feeling quite agitated after taking it with some shortness of breath and palpitations and presented to the emergency room for the same. He was initially thought to be a STEMI and was taken to the fence laborer but was found to have nonobstructive coronary artery disease. He also had some bradycardia and hypotension and his beta blockers were placed on hold. Early this morning he had developed increasing shortness of breath and hypoxemia requiring high flow nasal cannula with 60% FiO2. We are consulted for the same. He is seen today in follow-up on the selective care unit. He is currently awake and alert in no acute distress. He denies any worsening shortness of breath, cough or congestion. Chest x-ray revealed mild subsegmental atelectasis of the left lower lobe. CT angiogram was performed and there was no evidence of pulmonary embolism. There is again some atelectatic changes in the lung bases otherwise no other abnormalities. He is currently on 4 L/m per nasal cannula with O2 saturation of 98%. He is afebrile. Hemodynamically stable. Sodium 136. Potassium 4.2. Bicarb 26. Creatinine 1.00. He's been initiated on DuoNeb inhalations, empiric antibiotics in the form of doxycycline, he is continued on Wellbutrin and a NicoDerm patch is in place. Review of Systems REVIEW OF SYSTEMS: CONSTITUTIONAL: Positive for 30 pound weight gain over the past several months. EYES: Denies change in vision. EARS, NOSE, MOUTH, THROAT: Denies headaches, denies sore throat. CARDIOVASCULAR: Denies chest pain, palpitations or syncopal episodes. RESPIRATORY: Positive for shortness of breath, cough, congestion no hemoptysis. GASTROINTESTINAL: Denies change in appetite, denies abdominal pain GENITOURINARY: Denies hematuria, denies infections. MUSKULOSKELETAL: Denies pain, denies swelling. INTEGUMENTARY: Denies rash, denies eczema. NEUROLOGICAL: Denies recent memory loss, no recent seizure activity. PSYCHIATRIC: Denies anxiety, denies depression. HEMATOLOGIC/LYMPHATIC: Denies anemia, denies enlarged lymph nodes. Past Medical History Past Medical History: Atrial Fibrillation, Hypertension Additional Past Medical History / Comment(s): Kidney stones, chronic back pain History of Any Multi-Drug Resistant Organisms: None Reported Past Surgical History: Cholecystectomy, Tonsillectomy Past Anesthesia/Blood Transfusion Reactions: No Reported Reaction Past Psychological History: No Psychological Hx Reported, Depression Smoking Status: Current some day smoker Past Alcohol Use History: None Reported Past Drug Use History: None Reported - Past Family History Father History Unknown: Yes Mother History Unknown: Yes Additional Family Medical History / Comment(s): The family states no significant medical family history. Medications and Allergies Home Medications Medication Instructions Recorded Confirmed Type Losartan [Cozaar] 50 mg PO DAILY 30 Days #30 tab 05/30/19 10/12/19 Rx Metoprolol Tartrate [Lopressor] 50 mg PO BID 30 Days #60 tab 05/30/19 10/12/19 Rx NIFEdipine XL [Procardia Xl] 90 mg PO DAILY 30 Days #30 tab 05/30/19 10/12/19 Rx buPROPion HCL [buPROPion HCL SR] 150 mg PO BID 10/12/19 10/12/19 History Allergies Allergy/AdvReac Type Severity Reaction Status Date / Time NSAIDS (Non-Steroidal AdvReac kidney Verified 10/12/19 23:13 Anti-Inflamma issues Physical Exam Vitals: Vital Signs Temp Pulse Pulse Resp BP BP Pulse Ox 10/13/19 12:00 98.4 F 61 18 158/86 98 10/13/19 08:49 96 10/13/19 07:47 98.0 F 63 20 156/88 96 10/13/19 03:24 98.5 F 58 L 18 122/80 94 L 10/13/19 02:25 91 L 10/13/19 01:35 59 L 18 116/63 93 L 10/13/19 00:35 57 L 17 99/62 93 L 10/13/19 00:00 97.1 F L 42 L 17 91/54 96 10/12/19 23:35 43 L 16 91/54 97 10/12/19 23:05 42 L 16 94/55 95 10/12/19 22:35 42 L 16 89/54 94 L 10/12/19 22:20 57 L 18 99/61 95 10/12/19 22:05 57 L 18 105/48 95 10/12/19 21:50 98.3 F 44 L 18 110/56 95 10/12/19 20:16 45 L 18 85/57 92 L 10/12/19 20:09 97.7 F 46 L 18 107/74 91 L 10/12/19 19:54 42 L 18 100/58 94 L 10/12/19 19:33 42 L 18 71/41 90 L 10/12/19 19:10 43 L 20 128/72 92 L 10/12/19 19:00 48 L 19 88/55 93 L 10/12/19 18:50 49 L 20 88/55 88 L 10/12/19 18:40 54 L 13 52/39 88 L 10/12/19 18:30 53 L 18 130/73 91 L 10/12/19 18:22 92 L 10/12/19 18:07 97.5 F L 57 L 20 107/67 96 Intake and Output 10/13/19 10/13/19 10/13/19 06:59 14:59 22:59 Intake Total 340 Output Total 400 2600 Balance -400 -2260 Intake: Oral 340 Output: Urine 400 2600 Other: Voiding Method Urinal Urinal # Voids 1 Weight 104.6 kg GENERAL EXAM: Alert, pleasant 64-year-old gentleman, on 4 L nasal cannula, comfortable in no apparent distress. HEAD: Normocephalic. EYES: Normal reaction of pupils, equal size. NOSE: Clear with pink turbinates. THROAT: No erythema or exudates. NECK: No masses, no JVD. CHEST: No chest wall deformity. LUNGS: Equal air entry with no crackles, wheeze, rhonchi or dullness. CVS: S1 and S2 normal with no audible murmur, regular rhythm. ABDOMEN: No hepatosplenomegaly, normal bowel sounds, no guarding or rigidity. SPINE: No scoliosis or deformity SKIN: No rashes CENTRAL NERVOUS SYSTEM: No focal deficits, tone is normal in all 4 extremities. EXTREMITIES: There is no peripheral edema. No clubbing, no cyanosis. Peripheral pulses are intact. Results - Laboratory Findings CBC and BMP: 10/12/19 19:22 10/13/19 05:40 PT/INR, D-dimer D-Dimer 1.97 mg/L FEU (<0.60) H 10/13/19 09:07 Abnormal lab findings: Abnormal Labs 10/12/19 10/12/19 10/12/19 19:22 19:22 19:22 RBC 3.76 L Hgb 12.0 L Hct 36.3 L Neutrophils # 8.8 H D-Dimer Sodium 134 L BUN Creatinine 1.33 H Glucose 146 H Plasma Lactic Acid Vinny 2.5 H* Alkaline Phosphatase 132 H U Benzodiazepines Scrn 10/13/19 10/13/19 10/13/19 00:06 05:40 09:07 RBC Hgb Hct Neutrophils # D-Dimer 1.97 H Sodium 136 L BUN 21 H Creatinine Glucose Plasma Lactic Acid Vinny Alkaline Phosphatase U Benzodiazepines Scrn Detected H - Diagnostic Findings Chest x-ray: image reviewed CT scan - chest: image reviewed Assessment and Plan Assessment: 1 Agitation and shortness of breath successfully secondary to herbal supplements for chronic pain in the form of Kratom powder 2 Acute hypoxemic respiratory failure secondary to suspected acute exacerbation of chronic obstructive pulmonary disease 3 Chronic and ongoing tobacco dependence 50 years 4 STEMI alert this admission with nonobstructive coronary artery disease per cardiac catheterization on 10/12/2019 5 History of hypertension 6 Recent weight gain of approximately 30 pounds over the past several months 7 Paroxysmal atrial fibrillation 8 Chronic back pain Plan: The patient was seen and evaluated by Dr. Heaton. CAT scan, chest x-ray and labs all reviewed. No evidence of any acute pulmonary disease. Possible COPD exacerbation in a patient with significant smoking history. The patient is anxious to go home. We will perform a 6 minute walk test to determine if home oxygen as needed. Would recommend short acting bronchodilators, inhaled corticosteroids/long-acting beta agonist. Avoid oral steroids due to his feelings of agitation/anxiety. He would benefit from a follow-up in our office where we can perform full pulmonary function testing to evaluate for the severity of COPD and make recommendations regarding maintenance medications. He is educated regarding the importance of complete smoking cessation. Continue his home Wellbutrin. Educated regarding the importance of weight loss. If not home today we'll continue to follow and make further recommendations based on his clinical status. I, the cosigning physician, performed a history & physical examination of the patient. Lungs sounds are clear, diminished. Maintaining good O2 saturations in the 90s on 4 L/m per nasal cannula. I discussed the assessment and plan of care with my nurse practitioner, Thea Cordoba. I attest to the above consultation as dictated by her. Time with Patient: Greater than 30
--- NOTE | 2019-10-13 15:28 | P.PN ---
Subjective Progress Note Date: 10/13/19 This is a 62-year-old gentleman who is somewhat poor historian presented to the emergency room because he was not feeling well. The initial presentation was with agitation as well as restlessness. Subsequently the patient started experiencing epigastric discomfort. He described as a heartburn. No radiation to the arms, neck, shoulders, or back. An EKG was performed in the emergency department and that was called as acute ST segment elevation. Because of that the laborer petroleum ref[employer] was called and an emergent heart catheterization was performed and revealed mild nonobstructive coronary artery disease. The left ventricular end- diastolic pressure was elevated at 20 mmHg. The procedure was performed without any complication. Beside that and in the emergency department as well as in the cardiac lab[facility] [employer] ref[employer] the patient has been bradycardic with a heart rate in the 40s and also with marginally low blood pressure in the 90s millimeters mercury. At home he was receiving metoprolol which is on hold at this point. He is known to have history of paroxysmal atrial fibrillation as well as history of smoking as well as history of drug abuse. By the end of the procedure, the patient was chest pain-free. The chest x-ray did not show any acute abnormalities. The blood work over old came in to be unremarkable except for plasma lactic acid at 2.5. The WBC as well as hemoglobin are within normal limits. 10/13: CTA of the chest was negative for pulmonary embolism. Heart rate has been running in the 50s and 60s. Echocardiogram report remains pending. Chest x-ray reveals mild subsegmental atelectasis. Patient's been afebrile, blood pressure 156/88, pulse ox 96% on 4 L. Sodium 136, potassium 4.2, chloride 102, CO2 26, BUN 21 creatinine 1. Patient became very anxious during the night and was george afua on a nonrebreather transitioned to high flow oxygen currently down to 4 L nasal cannula. Patient voices anxiety. He states that it is better at the time of evaluation. Nephrology has ordered a dose of Bumex 1 mg IV and patient started on doxycycline. Objective - Vital Signs Vital signs: Vital Signs Temp 98.0 F 10/13/19 07:47 Pulse 63 10/13/19 07:47 Resp 20 10/13/19 07:47 BP 156/88 10/13/19 07:47 Pulse Ox 96 10/13/19 08:49 Intake & Output 10/12/19 10/13/19 10/13/19 18:59 06:59 18:59 Intake Total 75 Output Total 400 1400 Balance 75 -400 -1400 Weight 10.387 kg 104.6 kg Intake: IV 75 Output: Urine 400 1400 Other: Voiding Method Urinal Urinal # Voids 1 - Exam Gen: This is 64-year-old male. Patient is resting in bed and appears to be comfortable and in no acute distress. HEENT: Head is atraumatic, normocephalic. Pupils equal, round. Sclerae is anicteric. NECK: Supple. No JVD. No lymphadenopathy. No thyromegaly. LUNGS: Scattered rhonchi. No intercostal retractions. HEART: Regular rate and rhythm. No murmur. ABDOMEN: Soft. Bowel sounds are present. No masses. No tenderness. EXTREMITIES: No pedal edema. No calf tenderness. Dorsalis pedis +2 bilaterally. NEUROLOGICAL: Patient is awake, alert and oriented x3. Cranial nerves 2 through 12 are grossly intact. - Labs CBC & Chem 7: 10/12/19 19:22 10/13/19 05:40 Labs: Abnormal Lab Results - Last 24 Hours (Table) 10/12/19 10/12/19 10/12/19 Range/Units 19:22 19:22 19:22 RBC 3.76 L (4.30-5.90) m/uL Hgb 12.0 L (13.0-17.5) gm/dL Hct 36.3 L (39.0-53.0) % Neutrophils # 8.8 H (1.3-7.7) k/uL Sodium 134 L (137-145) mmol/L BUN (9-20) mg/dL Creatinine 1.33 H (0.66-1.25) mg/dL Glucose 146 H (74-99) mg/dL Plasma Lactic Acid Vinny 2.5 H* (0.7-2.0) mmol/L Alkaline Phosphatase 132 H (38-126) U/L U Benzodiazepines Scrn (NotDetected) 10/13/19 10/13/19 Range/Units 00:06 05:40 RBC (4.30-5.90) m/uL Hgb (13.0-17.5) gm/dL Hct (39.0-53.0) % Neutrophils # (1.3-7.7) k/uL Sodium 136 L (137-145) mmol/L BUN 21 H (9-20) mg/dL Creatinine (0.66-1.25) mg/dL Glucose (74-99) mg/dL Plasma Lactic Acid Vinny (0.7-2.0) mmol/L Alkaline Phosphatase (38-126) U/L U Benzodiazepines Scrn Detected H (NotDetected) Assessment and Plan Plan: Assessment #1 epigastric discomfort #2 sinus bradycardia #3 hypotension #4 paroxysmal atrial fibrillation #5 history of smoking Plan #1 an emergent heart catheterization revealed mild CAD #2 continue holding any AV shaneka jose roberto agents #3 obtain an echocardiogram, report pending #4 TSH normal #4 standard groin care #5 follow-up with the patient Nurse practitioner note has been reviewed, I agree with the document and findings and plan of care. Patient has been seen and examined.
--- NOTE | 2019-10-13 16:48 | ECHOF ---
Referral Reason: MEASUREMENTS -------- HEIGHT: 175.3 cm WEIGHT: 104.3 kg BP: 122/80 RVIDd: 3.4 cm (< 3.3) IVSd: 1.3 cm (0.6 - 1.1) LVIDd: 4.4 cm (3.9 - 5.3) LVPWd: 1.3 cm (0.6 - 1.1) IVSs: 1.7 cm LVIDs: 3.2 cm LVPWs: 1.8 cm LA Diam: 3.8 cm (2.7 - 3.8) LAESV Index (A-L): 28.67 ml/m Ao Diam: 3.5 cm (2.0 - 3.7) AV Cusp: 2.7 cm (1.5 - 2.6) MV EXCURSION: 21.518 mm (> 18.000) MV EF SLOPE: 146 mm/s (70 - 150) EPSS: 0.7 cm MV E [place]: 1.04 m/s MV DecT: 217 ms MV A [place]: 0.58 m/s MV E/A Ratio: 1.80 RAP: 5.00 mmHg RVSP: 35.07 mmHg TAPSE: 21.84 mm FINDINGS -------- Sinus rhythm. This was a technically adequate study. The left ventricular size is normal. There is mild concentric left ventricular hypertrophy. Overa ll left ventricular systolic function is normal with, an EF between 60 - 65 %. The right ventricle is mildly enlarged. Normal LA size by volume 22+/-6 ml/m2. The right atrium is normal in size. Interatrial and interventricular septum intact. The aortic valve is trileaflet and appears structurally normal. Mild mitral regurgitation is present. Mild tricuspid regurgitation present. Right ventricular systolic pressure is normal at < 35 mmHg. There is no pulmonic regurgitation present. The aortic root size is normal. Normal inferior vena cava with normal inspiratory collapse consistent with estimated right atrial pre ssure of 5 mmHg. There is no pericardial effusion. CONCLUSIONS -------- 1. Sinus rhythm. 2. This was a technically adequate study. 3. The left ventricular size is normal. 4. There is mild concentric left ventricular hypertrophy. 5. Overall left ventricular systolic function is normal with, an EF between 60 - 65 %. 6. The right ventricle is mildly enlarged. 7. Normal LA size by volume 22+/-6 ml/m2. 8. The right atrium is normal in size. 9. Interatrial and interventricular septum intact. 10. The aortic valve is trileaflet and appears structurally normal. 11. Mild mitral regurgitation is present. 12. Mild tricuspid regurgitation present. 13. Right ventricular systolic pressure is normal at < 35 mmHg. 14. There is no pulmonic regurgitation present. 15. The aortic root size is normal. 16. Normal inferior vena cava with normal inspiratory collapse consistent with estimated right atrial pressure of 5 mmHg. 17. There is no pericardial effusion. SERVICE CENTER SUPERVISOR: Mary Ann Patrick RDCS
[2019-10-13] MEDS ORDERED: HYDROcodone/APAP 5-325MG 1 EACH TAB PO PRN (19:49)
[2019-10-13] MEDS: BUDESONIDE 0.5 MG/2 ML NEBU INHALATION SCH (20:36)
[2019-10-14 02:56] VITALS: RESP 18
[2019-10-14] MEDS: PANTOPRAZOLE 40 MG TABLET PO SCH (06:51)
--- NOTE | 2019-10-14 09:01 | P.PN ---
Subjective Patient is feeling much better this morning. He remains in room air and less agitated. Apparently he admitted to inhaling Kratom powder which could be a cause for his presenting symptoms. He denied any inhalational drugs yesterday including crack cocaine. Objective - Vital Signs Vital signs: Vital Signs Temp 97.4 F L 10/14/19 04:00 Pulse 61 10/14/19 04:00 Resp 18 10/14/19 04:00 BP 144/92 10/14/19 04:00 Pulse Ox 94 L 10/14/19 04:00 Intake & Output 10/13/19 10/14/19 10/14/19 18:59 06:59 18:59 Intake Total 570 Output Total 2600 Balance -2030 Weight 103.1 kg Intake: Oral 570 Output: Urine 2600 Other: Voiding Method Urinal Urinal # Voids 1 1 - Exam Vital Signs: I have reviewed the vital signs. GENERAL: Well-nourished, Well-developed , no apparent distress, cooperative Eyes: PERRL, extraoculry movements intact, clear conjunctiva Head: : Atraumatic external nose and ears, oropharyngeal mucosa is moist without lesions or exudates Neck: Symmetric, trachea midline, No thyromegaly, no masses or neck vain pulsation, no neck rigidity CVS: +S1/S2, No murmurs or gallops. Peripheral pulses 2+ and equal in all extremities. RESP: Unlabored respiratory effort. Breath sounds are diminished bilaterally, right lower lung [place] have crackles in the bases with few expiratory wheezes and rhonchi on the left is mostly diminished without significant wheezing Abdomen: Bowel sounds present in all 4 quadrants, Soft to palpation, Nontender/Nondistended, No hepatosplenomegaly, no hernias or masses, no CVA tnderness Musculoskeletal: Extremities w/o deformity, No cyanosis or clubbing, no joint swelling Skin: Warm, Dry. No rashes or lesions Neuro: test engine evaluator II-XII grossly intact, motor strenght 5/5 i upper and lower extremities, no clonus, patellar DTRs 2+ and sympetrical Psych: Awake, Alert, & Oriented (AAO) x3 Appropriate mood and affect - Labs CBC & Chem 7: 10/12/19 19:22 10/13/19 05:40 Labs: Abnormal Lab Results - Last 24 Hours (Table) 02/08/20 Range/Units 09:07 D-Dimer 1.97 H (<0.60) mg/L FEU Assessment and Plan Assessment: 1. Acute hypoxic respiratory failure Pulmonary service input appreciated [place] to be due to inhalation effects of Kratom powder Denied other drugs Currently on room air Cough expectoration have resolved 2. Acute kidney injury Resolved 3. Non Obstructive coronary artery disease Cardiology following 4. Lactic acidosis Resolved with IV fluids and oxygen supplementation 5. Hypertension Stable 6. Anxiety and depression Continue home bupropion Stable Plan for discharge home once cleared by cardiology and pulmonary service
[2019-10-14] MEDS: BUDESONIDE 0.5 MG/2 ML NEBU INHALATION SCH (09:04)
[2019-10-14] MEDS: buPROPion SR 150 MG TABLET.ER PO SCH (09:06)
[2019-10-14] MEDS: NICOTINE 14MG/24HR PATCH TRANSDERM SCH (09:06)
[2019-10-14] MEDS ORDERED: amLODIPine 5 MG TAB PO STA (11:36)
[2019-10-14] MEDS ORDERED: LOSARTAN 50 MG TAB PO SCH (11:45)
[2019-10-14] MEDS ORDERED: NIFEdipine XL 90 MG TAB.ER.24 PO SCH (11:45)
[2019-10-14] MEDS ORDERED: METOPROLOL TARTRATE 50 MG TAB PO SCH (11:45)
--- NOTE | 2019-10-14 11:48 | P.PN ---
Subjective Progress Note Date: 10/14/19 This is a 62-year-old gentleman who is somewhat poor historian presented to the emergency room because he was not feeling well. The initial presentation was with agitation as well as restlessness. Subsequently the patient started experiencing epigastric discomfort. He described as a heartburn. No radiation to the arms, neck, shoulders, or back. An EKG was performed in the emergency department and that was called as acute ST segment elevation. Because of that the foundry laborer coreroom was called and an emergent heart catheterization was performed and revealed mild nonobstructive coronary artery disease. The left ventricular end- diastolic pressure was elevated at 20 mmHg. The procedure was performed without any complication. Beside that and in the emergency department as well as in the cardiac foundry laborer coreroom the patient has been bradycardic with a heart rate in the 40s and also with marginally low blood pressure in the 90s millimeters mercury. At home he was receiving metoprolol which is on hold at this point. He is known to have history of paroxysmal atrial fibrillation as well as history of smoking as well as history of drug abuse. By the end of the procedure, the patient was chest pain-free. The chest x-ray did not show any acute abnormalities. The blood work over old came in to be unremarkable except for plasma lactic acid at 2.5. The WBC as well as hemoglobin are within normal limits. 10/13: CTA of the chest was negative for pulmonary embolism. Heart rate has been running in the 50s and 60s. Echocardiogram report remains pending. Chest x-ray reveals mild subsegmental atelectasis. Patient's been afebrile, blood pressure 156/88, pulse ox 96% on 4 L. Sodium 136, potassium 4.2, chloride 102, CO2 26, BUN 21 creatinine 1. Patient became very anxious during the night and was george afua on a nonrebreather transitioned to high flow oxygen currently down to 4 L nasal cannula. Patient voices anxiety. He states that it is better at the time of evaluation. Nephrology has ordered a dose of Bumex 1 mg IV and patient started on doxycycline. 10/14: Has been seen today in follow-up. Patient's blood pressure this morning 210/113 and admitting physician ordered amlodipine 5 mg daily. Otherwise heart rate is 74, afebrile, pulse ox 96% on room air. Heart rate has been stable as well as renal function improved. Patient states that his home medications have not been resumed which include losartan 50 mg daily, Lopressor 50 g twice daily and Procardia XL 90 mg daily. These will be resumed, monitor patient's blood pressure and if improved, patient is cleared from cardiology for discharge. Amlodipine ordered by primary will be discontinued. Objective - Vital Signs Vital signs: Vital Signs Temp 98.2 F 10/14/19 09:09 Pulse 74 10/14/19 09:09 Resp 18 10/14/19 09:09 BP 210/113 10/14/19 09:09 Pulse Ox 96 10/14/19 09:09 Intake & Output 10/13/19 10/14/19 10/14/19 18:59 06:59 18:59 Intake Total 570 200 Output Total 2600 Balance -2029 200 Weight 103.1 kg Intake: Oral 570 200 Output: Urine 2600 Other: Voiding Method Urinal Urinal Urinal # Voids 1 1 - Exam Gen: This is 64-year-old male. Patient is resting in bed and appears to be comfortable and in no acute distress. HEENT: Head is atraumatic, normocephalic. Pupils equal, round. Sclerae is anicteric. NECK: Supple. No JVD. No lymphadenopathy. No thyromegaly. LUNGS: Scattered rhonchi. No intercostal retractions. HEART: Regular rate and rhythm. No murmur. ABDOMEN: Soft. Bowel sounds are present. No masses. No tenderness. EXTREMITIES: No pedal edema. No calf tenderness. Dorsalis pedis +2 bilaterally. NEUROLOGICAL: Patient is awake, alert and oriented x3. Cranial nerves 2 through 12 are grossly intact. - Labs CBC & Chem 7: 10/12/19 19:22 10/13/19 05:40 Assessment and Plan Plan: Assessment #1 epigastric discomfort #2 sinus bradycardia #3 hypotension #4 paroxysmal atrial fibrillation #5 history of smoking Plan an emergent heart catheterization revealed mild CAD Resume losartan 50 mg daily Resume Lopressor 50 mg twice daily Resume Procardia XL 90 mg every day Monitor blood pressure closely and if improved, patient is cleared for discharge from cardiology. Nurse practitioner note has been reviewed, I agree with the document and findings and plan of care. Patient has been seen and examined.
[2019-10-14 12:29] VITALS: PULSE 66; TEMP 98.3
[2019-10-14 15:06] VITALS: BP 154/96
[2019-10-15] MEDS ORDERED: amLODIPine 5 MG TAB PO SCH (09:00)
== END 2019-10-14 16:07 | disposition home or self-care (01) | DRG 917 ==
LOC: EC 17:56 → 2SICU 20:30 → 3SCARD 20:57
PROVIDERS: ADMIT Internal Medicine; ATTEND Internal Medicine
DX: T65.891A Toxic effect of other specified substances, accidental (unintentional), initial encounter (principal); J96.01 Acute respiratory failure with hypoxia; E87.2 Acidosis; J98.11 Atelectasis; N17.9 Acute kidney failure, unspecified; I95.9 Hypotension, unspecified; I48.0 Paroxysmal atrial fibrillation; I25.10 Atherosclerotic heart disease of native coronary artery without angina pectoris; R00.1 Bradycardia, unspecified; I10 Essential (primary) hypertension; F41.9 Anxiety disorder, unspecified; F32.9 Major depressive disorder, single episode, unspecified; G89.29 Other chronic pain; M54.9 Dorsalgia, unspecified; D64.9 Anemia, unspecified; R19.5 Other fecal abnormalities; E66.9 Obesity, unspecified; Z68.33 Body mass index [BMI] 33.0-33.9, adult; F17.200 Nicotine dependence, unspecified, uncomplicated; Z71.6 Tobacco abuse counseling; Z79.899 Other long term (current) drug therapy; Z87.442 Personal history of urinary calculi; Z90.49 Acquired absence of other specified parts of digestive tract; Z88.6 Allergy status to analgesic agent; Y92.009 Unspecified place in unspecified non-institutional (private) residence as the place of occurrence of the external cause
CPT/HCPCS: 36415; 71045; 71275; 80048; 80053; 80306; 80320; 80329; 81003; 83520; 83605; 83880; 83930; 84443; 84484; 85025; 85379; 93005; 93306; 93458; 96361; 96374; 96375; 96376; 99285

== ENCOUNTER 2019-10-17 12:42 | Emergency (ER) | payer OTHER ==
[2019-10-17] MEDS ORDERED: hydrALAZINE HCL 20 MG/ML 1 ML VIAL IVP STA (13:07)
[2019-10-17 13:24] LABS: Basophils % (A) 1 %; Eosinophils # (A) 0.3 k/uL (0-0.7); Eosinophils % (A) 4 %; HCT 38.9 % (39.0-53.0); HGB 13.1 gm/dL (13.0-17.5); Lymphocytes # (A) 1.7 k/uL (1.0-4.8); Lymphocytes % (A) 27 %; MCH 32.5 pg (25.0-35.0); MCHC 33.8 g/dL (31.0-37.0); MCV 96.2 fL (80.0-100.0); Mean Platelet Volume 7.5; Monocytes # (A) 0.3 k/uL (0-1.0); Monocytes % (A) 4 %; Neutrophils # (A) 3.8 k/uL (1.3-7.7); Neutrophils % (A) 61 %; Platelet Count 251 k/uL (150-450); RBC 4.04 m/uL (4.30-5.90); RDW 13.2 % (11.5-15.5); WBC 6.2 k/uL (3.8-10.6)
--- NOTE | 2019-10-17 13:26 | XR ---
EXAMINATION TYPE: XR chest 2V DATE OF EXAM: 10/17/2019 COMPARISON: 10/13/2019 TECHNIQUE: PA and lateral views submitted. HISTORY: Chest Pain FINDINGS: The lungs are clear and there is no pneumothorax, pleural effusion, or focal pneumonia. Subsegmenta l linear changes both lung bases. Chronic arthropathy of the shoulders. No overt failure. IMPRESSION: 1. Basilar atelectasis favored over pneumonia.
[2019-10-17 13:34] LABS: Albumin 4.5 g/dL (3.5-5.0); Calcium 9.7 mg/dL (8.4-10.2); Total Bilirubin 0.8 mg/dL (0.2-1.3); Total Protein 8.1 g/dL (6.3-8.2)
[2019-10-17 13:37] LABS: INR 0.9 (<1.2); Partial Thromboplastin Time 24.7 sec (22.0-30.0); Prothrombin Time 9.8 sec (9.0-12.0)
[2019-10-17 13:40] LABS: Potassium 4.8 mmol/L (3.5-5.1)
[2019-10-17 13:41] LABS: Magnesium 2.4 mg/dL (1.6-2.3)
--- NOTE | 2019-10-17 14:07 | ED ---
General Adult HPI - General Chief complaint: Chest Pain Stated complaint: chest pressure, abn EKG Time Seen by Provider: 10/17/19 12:51 Source: patient, RN notes reviewed, old records reviewed Mode of arrival: wheelchair Limitations: no limitations - History of Present Illness Initial comments: 64-year-old male presenting for evaluation of hypertension. Patient has known history of hypertension and is on no medications. He had been seen by his prima care physician noted to have a blood pressure of 200/110 with some EKG changes and was sent to the emergency department for evaluation. There was concern by the primary care physician for aortic dissection. Patient had been seen in this emergency department one week ago he had been admitted with an ST segment elevated [place], he was found to have a normal heart catheterization with no obstructive CAD. He does have history of hypertension and states he took his medications just prior to presenting to his doctor's office. He denies any chest pain, no chest discomfort or chest tightness. No abdominal pain. No headache or dizziness. No focal numbness or weakness. No vomiting or diarrhea, no fever or cough. - Related Data Home Medications Medication Instructions Recorded Confirmed buPROPion HCL [buPROPion HCL SR] 150 mg PO BID 10/12/19 10/17/19 Previous Rx's Medication Instructions Recorded Losartan [Cozaar] 50 mg PO DAILY 30 Days #30 tab 05/30/19 Albuterol Inhaler [Ventolin Hfa 1 - 2 puff INHALATION RT-Q6H PRN 10/14/19 Inhaler] #1 inhaler Aspirin [Adult Low Dose Aspirin EC] 81 mg PO DAILY #30 tablet. 10/14/19 Atorvastatin [Lipitor] 40 mg PO HS #30 tablet 10/14/19 Metoprolol Tartrate [Lopressor] 50 mg PO BID tab 10/14/19 NIFEdipine XL [Procardia XL] 90 mg PO DAILY tab.er.24 10/14/19 Omeprazole [PriLOSEC] 20 mg PO AC-BRKFST #30 cap 10/14/19 Allergies Allergy/AdvReac Type Severity Reaction Status Date / Time NSAIDS (Non-Steroidal AdvReac kidney Verified 10/17/19 12:50 Anti-Inflamma issues Review of Systems ROS Statement: Those systems with pertinent positive or pertinent negative responses have been documented in the HPI. ROS Other: All systems not noted in ROS Statement are negative. Past Medical History Past Medical History: Atrial Fibrillation, Hypertension Additional Past Medical History / Comment(s): Kidney stones, chronic back pain History of Any Multi-Drug Resistant Organisms: None Reported Past Surgical History: Cholecystectomy, Tonsillectomy Past Anesthesia/Blood Transfusion Reactions: No Reported Reaction Past Psychological History: No Psychological Hx Reported, Depression Smoking Status: Current some day smoker Past Alcohol Use History: None Reported Past Drug Use History: None Reported - Past Family History Father History Unknown: Yes Mother History Unknown: Yes Additional Family Medical History / Comment(s): The family states no significant medical family history. General Exam Limitations: no limitations General appearance: alert, in no apparent distress Head exam: Present: atraumatic, normocephalic Eye exam: Present: normal appearance, PERRL ENT exam: Present: normal exam Neck exam: Present: normal inspection. Absent: tenderness, meningismus Respiratory exam: Present: normal lung sounds bilaterally. Absent: respiratory distress Cardiovascular Exam: Present: regular rate, normal rhythm GI/Abdominal exam: Present: soft. Absent: distended, tenderness, guarding Extremities exam: Present: normal inspection, normal capillary refill. Absent: pedal edema, calf tenderness Neurological exam: Present: alert, oriented X3, CN II-XII intact. Absent: motor sensory deficit Psychiatric exam: Present: normal affect, normal mood Skin exam: Present: warm, dry, intact. Absent: cyanosis, diaphoretic Course Vital Signs 10/17/19 10/17/19 10/17/19 12:47 13:11 13:45 Temperature 97.4 F L Pulse Rate 60 57 L 52 L Respiratory 20 18 18 Rate Blood Pressure 216/109 204/134 192/110 O2 Sat by Pulse 99 100 98 Oximetry 10/17/19 10/17/19 15:00 15:34 Temperature Pulse Rate 51 L 50 L Respiratory 18 18 Rate Blood Pressure 174/95 182/102 O2 Sat by Pulse 100 Oximetry EKG Findings - EKG Comments: EKG Findings:: EKG: Sinus bradycardia, LVH with mild QRS widening, rate of 59, IL interval 168, QRS duration 116, QTC 4:15, no significant change compared to previous EKG in May 2019, improvement from EKG in 10/12/2019. Medical Decision Making - Medical Decision Making 64-year-old male presenting with elevated blood pressure at his primary care office. He was sent in to rule out aortic dissection. He is not complaining of any chest pain or abdominal pain. No focal numbness or weakness. No headache. Initial blood pressures quite elevated, was given hydralazine in the emergency department. He had just taken his antihypertensives at home prior to evaluation. He has no complaints. CT is performed this is negative for aortic dissection, no acute findings on CT angiography. He has normal CBC, normal CMP, negative troponin. EKG is sinus bradycardia, no significant change from prior. Patient very eager for discharge, blood pressure is improved, he wants to monitor his blood pressure at home and will return with development of any symptoms or significantly elevated blood pressure. He has a blood pressure cuff at home and has good outpatient follow-up. I discussed case with his primary care physician Dr. Millan who evaluated him as an outpatient, monitor blood pressure, agreeable with discharge. - Lab Data Result diagrams: 10/17/19 13:08 10/17/19 13:08 Lab Results 10/17/19 10/17/19 10/17/19 Range/Units 13:08 13:08 13:08 WBC 6.2 (3.8-10.6) k/uL RBC 4.04 L (4.30-5.90) m/uL Hgb 13.1 (13.0-17.5) gm/dL Hct 38.9 L (39.0-53.0) % MCV 96.2 (80.0-100.0) fL MCH 32.5 (25.0-35.0) pg MCHC 33.8 (31.0-37.0) g/dL RDW 13.2 (11.5-15.5) % Plt Count 251 (150-450) k/uL Neutrophils % 61 % Lymphocytes % 27 % Monocytes % 4 % Eosinophils % 4 % Basophils % 1 % Neutrophils # 3.8 (1.3-7.7) k/uL Lymphocytes # 1.7 (1.0-4.8) k/uL Monocytes # 0.3 (0-1.0) k/uL Eosinophils # 0.3 (0-0.7) k/uL Basophils # 0.0 (0-0.2) k/uL PT 9.8 (9.0-12.0) sec INR 0.9 (<1.2) APTT 24.7 (22.0-30.0) sec Sodium 138 (137-145) mmol/L Potassium 4.8 (3.5-5.1) mmol/L Chloride 105 (98-107) mmol/L Carbon Dioxide 23 (22-30) mmol/L Anion Gap 10 mmol/L BUN 18 (9-20) mg/dL Creatinine 1.09 (0.66-1.25) mg/dL Est GFR (CKD-EPI)AfAm 84 (>60 ml/min/1.73 sqM) Est GFR (CKD-EPI)NonAf 72 (>60 ml/min/1.73 sqM) Glucose 105 H (74-99) mg/dL Calcium 9.7 (8.4-10.2) mg/dL Magnesium 2.4 H (1.6-2.3) mg/dL Total Bilirubin 0.8 (0.2-1.3) mg/dL AST 45 (17-59) U/L ALT 39 (4-49) U/L Alkaline Phosphatase 124 (38-126) U/L Troponin I (0.000-0.034) ng/mL Total Protein 8.1 (6.3-8.2) g/dL Albumin 4.5 (3.5-5.0) g/dL 10/17/19 Range/Units 13:08 WBC (3.8-10.6) k/uL RBC (4.30-5.90) m/uL Hgb (13.0-17.5) gm/dL Hct (39.0-53.0) % MCV (80.0-100.0) fL MCH (25.0-35.0) pg MCHC (31.0-37.0) g/dL RDW (11.5-15.5) % Plt Count (150-450) k/uL Neutrophils % % Lymphocytes % % Monocytes % % Eosinophils % % Basophils % % Neutrophils # (1.3-7.7) k/uL Lymphocytes # (1.0-4.8) k/uL Monocytes # (0-1.0) k/uL Eosinophils # (0-0.7) k/uL Basophils # (0-0.2) k/uL PT (9.0-12.0) sec INR (<1.2) APTT (22.0-30.0) sec Sodium (137-145) mmol/L Potassium (3.5-5.1) mmol/L Chloride (98-107) mmol/L Carbon Dioxide (22-30) mmol/L Anion Gap mmol/L BUN (9-20) mg/dL Creatinine (0.66-1.25) mg/dL Est GFR (CKD-EPI)AfAm (>60 ml/min/1.73 sqM) Est GFR (CKD-EPI)NonAf (>60 ml/min/1.73 sqM) Glucose (74-99) mg/dL Calcium (8.4-10.2) mg/dL Magnesium (1.6-2.3) mg/dL Total Bilirubin (0.2-1.3) mg/dL AST (17-59) U/L ALT (4-49) U/L Alkaline Phosphatase (38-126) U/L Troponin I <0.012 (0.000-0.034) ng/mL Total Protein (6.3-8.2) g/dL Albumin (3.5-5.0) g/dL Disposition Clinical Impression: Asymptomatic hypertension Disposition: HOME SELF-CARE Condition: Fair Instructions (If sedation given, give patient instructions): Chronic Hypertension (ED) Additional Instructions: Please return with any chest pain or abdominal pain, significantly elevated blood pressure or any concern. Is patient prescribed a controlled substance at d/c from ED?: No Referrals: Brown Millan [Primary Care Provider] - 1-2 days Time of Disposition: 15:44
--- NOTE | 2019-10-17 15:19 | CT ---
EXAMINATION TYPE: CT angio thor/abd pel aorta DATE OF EXAM: 10/17/2019 COMPARISON: CT angiogram of the chest 10/13/2019 HISTORY: chest pain CT DLP: 2055.7 mGycm. Automated Exposure Control for Dose Reduction was Utilized. CONTRAST: CT scan of the thorax, abdomen and pelvis is performed without and with IV Contrast, patient injected with 100 mL of Isovue 370. Three-dimensional reconstructions on an alternate workstation. FINDINGS: LUNGS: The lungs are grossly clear, there is no concerning parenchymal mass or nodule identified. T here is no pleural effusion or pneumothorax seen. The tracheobronchial tree is patent. MEDIASTINUM: There are no greater than 1 cm hilar or mediastinal lymph nodes. No pericardial effusi on is seen. Aorta shows normal caliber, there is no evident aneurysm or dissection. No evident embolus. Inferior mesenteric artery, superior mesenteric artery, celiac axis, renal arteries, common iliac, internal an d external iliac, common femoral, proximal deep and superficial femoral arteries are patent. LIVER/GB: No significant abnormality is appreciated. PANCREAS: No significant abnormality is seen. SPLEEN: No significant abnormality is seen. ADRENALS: No significant abnormality is seen. KIDNEYS: No significant interval change is seen multiple cortical cysts are present bilaterally.. No evident renal artery stenosis. BOWEL: No significant abnormality is seen. GENITAL ORGANS: The prostate is enlarged and shows associated calcification. LYMPH NODES: No greater than 1cm abdominal or pelvic lymph nodes are appreciated. OSSEOUS STRUCTURES: No significant abnormality is seen. OTHER: There is a hiatal hernia present. IMPRESSION: No acute abnormality, no significant interval change from 4 days prior.
[2019-10-17 15:59] VITALS: BP 175/101; PULSE 53; RESP 16; TEMP 97.9
== END 2019-10-17 16:00 | disposition home or self-care (01) ==
LOC: EC 12:42
DX: I10 Essential (primary) hypertension (principal); I48.91 Unspecified atrial fibrillation; F17.200 Nicotine dependence, unspecified, uncomplicated; Z79.899 Other long term (current) drug therapy; Z88.6 Allergy status to analgesic agent
CPT/HCPCS: 36415; 93005; 80053; 83735; 84484; 85025; 85610; 85730; 71046; 71275; 74174; 99285; 96374; J0360; Q9967

== ENCOUNTER 2019-10-23 09:22 | Day surgery (SDC) | payer OTHER ==
[2019-10-19 12:58] VITALS: BMI 31.3
[~2019-10-23 09:22] MED LIST changes: -IV FLUID CONTINUATION 500 ML IV ONE; +LACTATED RINGERS 1,000 ML IV SCH
[2019-10-23 09:48] VITALS: TEMP 97.8
[2019-10-23] MEDS ORDERED: PROPOFOL 10 MG/ML 20 ML VIAL IV ONE (10:21)
[2019-10-23] MEDS ORDERED: ePHEDrine SULFATE/0.9% NACL/PF 50 MG/5 ML SYRINGE IV ONE (10:21)
[2019-10-23] MEDS ORDERED: IV FLUID CONTINUATION 1,000 ML IV ONE (10:53)
--- NOTE | 2019-10-23 11:00 | P.PCN ---
Date of Procedure: 10/23/19 Description of Procedure: BRIEF HISTORY: Patient is a 64-year-old male presenting for outpatient colonoscopy for follow- up after positive Cologard. Patient denies any change in bowel habits, blood per rectum or abdominal pain. No prior colonoscopies reported. PROCEDURE PERFORMED: Colonoscopy with polypectomy. PREOPERATIVE DIAGNOSIS: Positive Cologard, no prior colonoscopies. ESTIMATED BLOOD LOSS: Minimal. IV sedation per Anesthesia. PROCEDURE: After informed consent was obtained, the patient, was brought into the endoscopy unit. IV sedation was administered by Anesthesia under continuous monitoring. Digital rectal examination was normal. Initially the Olympus CF-190 flexible video colonoscope was then inserted in the rectum, gradually advanced into the cecum without any difficulty. Careful examination was performed as the scope was gradually being withdrawn. Ileocecal valve and the appendiceal orifice were visualized and appeared normal. Prep was excellent. Mucosa of the cecum, ascending colon, transverse colon, descending colon, sigmoid colon, and rectum appeared normal. 3 diminutive polyps measuring 2 mm in size were removed from the ascending colon, transverse colon and sigmoid colon with cold forcep polypectomy. Retroflexion was performed in the rectum and no lesions were seen. The patient tolerated the procedure well. IMPRESSION: 3 diminutive polyps removed with cold forcep polypectomy. Otherwise, normal-appearing colon from rectum to cecum. RECOMMENDATIONS: Findings of this examination were discussed with the patient and his . Okay to resume diet. Okay to resume medications. Await pathology from polypectomies. Would recommend repeat colonoscopy in 5-7 years pending pathology from polypectomies.
[2019-10-23 11:23] VITALS: BP 147/78; PULSE 78; RESP 18
== END 2019-10-23 11:33 | disposition home or self-care (01) ==
LOC: ORWHC2ENDO 09:22
PROVIDERS: ATTEND Internal Medicine
DX: K63.5 Polyp of colon (principal); I10 Essential (primary) hypertension; K21.9 Gastro-esophageal reflux disease without esophagitis; F17.210 Nicotine dependence, cigarettes, uncomplicated; Z88.6 Allergy status to analgesic agent; Z79.82 Long term (current) use of aspirin; Z79.899 Other long term (current) drug therapy; Z90.49 Acquired absence of other specified parts of digestive tract; Z98.890 Other specified postprocedural states; Z90.89 Acquired absence of other organs
CPT/HCPCS: 88305; 45380; J2704

== ENCOUNTER 2019-12-28 16:57 | Emergency (ER) | payer OTHER ==
[2019-12-28 17:09] VITALS: RESP 18
[2019-12-28] MEDS ORDERED: SODIUM CHLORIDE 0.9% 1,000 ML IV STA (17:11)
[2019-12-28] MEDS ORDERED: MORPHINE SULFATE 4 MG/ML SYRINGE IV STA (17:11)
--- NOTE | 2019-12-28 17:12 | ED ---
Male Urogenital HPI - General Chief complaint: Urogenital Stated complaint: Male Time Seen by Provider: 12/28/19 17:11 Source: patient, RN notes reviewed, old records reviewed Mode of arrival: ambulatory Limitations: no limitations - History of Present Illness Initial comments: This is a 64-year-old male DF for evaluation patient with us today for ev aluation regards to severe dysuria flank pain. Patient was seen in urgent care was told that he may be has kidney stones versus infection afebrile now it has had fever prior in the week. He has had history of UTI in the pastskin new sexual partner Complaint: dysuria -: hour(s) Location: penis, abdomen Severity: moderate Quality: burning Consistency: constant Improves with: urination Worsens with: none Reports: fever, other (BL flankl pain) - Related Data Home Medications Medication Instructions Recorded Confirmed buPROPion HCL [buPROPion HCL SR] 150 mg PO BID 10/12/19 10/19/19 Metoprolol Tartrate [Lopressor] 50 mg PO BID PRN 10/19/19 10/19/19 Previous Rx's Medication Instructions Recorded Losartan [Cozaar] 50 mg PO DAILY 30 Days #30 tab 05/30/19 Albuterol Inhaler (Mhu) [Ventolin 1 - 2 puff INHALATION RT-Q6H PRN 10/14/19 Hfa Inhaler (Mhu)] #1 inhaler Aspirin [Adult Low Dose Aspirin EC] 81 mg PO DAILY #30 tablet. 10/14/19 Atorvastatin [Lipitor] 40 mg PO HS #30 tablet 10/14/19 NIFEdipine XL [Procardia XL] 90 mg PO DAILY tab.er.24 10/14/19 Omeprazole [PriLOSEC] 20 mg PO AC-BRKFST #30 cap 10/14/19 Ciprofloxacin HCl [Cipro] 500 mg PO Q12HR #20 tablet 12/28/19 Allergies Allergy/AdvReac Type Severity Reaction Status Date / Time NSAIDS (Non-Steroidal AdvReac kidney Verified 12/28/19 17:09 Anti-Inflamma issues Review of Systems ROS Statement: Those systems with pertinent positive or pertinent negative responses have been documented in the HPI. ROS Other: All systems not noted in ROS Statement are negative. Past Medical History Past Medical History: Atrial Fibrillation, Hypertension Additional Past Medical History / Comment(s): kidney stones History of Any Multi-Drug Resistant Organisms: None Reported Past Surgical History: Cholecystectomy, Orthopedic Surgery Additional Past Surgical History / Comment(s): Right knee, left shoulder Past Anesthesia/Blood Transfusion Reactions: No Reported Reaction Past Psychological History: Depression Smoking Status: Current some day smoker Past Alcohol Use History: None Reported Past Drug Use History: None Reported - Past Family History Father History Unknown: Yes Mother History Unknown: Yes General Exam Limitations: no limitations General appearance: alert, in no apparent distress Head exam: Present: atraumatic, normocephalic, normal inspection Eye exam: Present: normal appearance, PERRL, EOMI. Absent: scleral icterus, conjunctival injection, periorbital swelling ENT exam: Present: normal exam, mucous membranes moist Neck exam: Present: normal inspection. Absent: tenderness, meningismus, lymphadenopathy Respiratory exam: Present: normal lung sounds bilaterally. Absent: respiratory distress, wheezes, rales, rhonchi, stridor Cardiovascular Exam: Present: normal rhythm, tachycardia, normal heart sounds. Absent: systolic murmur, diastolic murmur, rubs, gallop, clicks GI/Abdominal exam: Present: soft, normal bowel sounds. Absent: distended, tenderness, guarding, rebound, rigid Extremities exam: Present: normal inspection, full ROM, normal capillary refill. Absent: tenderness, pedal edema, joint swelling, calf tenderness Back exam: Present: normal inspection Neurological exam: Present: alert, oriented X3, CN II-XII intact Psychiatric exam: Present: normal affect, normal mood Skin exam: Present: warm, dry, intact, normal color. Absent: rash Course Vital Signs 12/28/19 12/28/19 17:05 19:31 Temperature 97.9 F 98.9 F Pulse Rate 104 H 83 Respiratory 18 18 Rate Blood Pressure 195/120 175/95 O2 Sat by Pulse 97 97 Oximetry - Reevaluation(s) Reevaluation #1: Medical record is reviewed Pain symptoms are improved Patient is improved results and can be discharged Medical Decision Making - Medical Decision Making 64 male DF for evaluation of UTI dysuria versus polynephritis. Patient's able to eat and drink without difficulty discharged - Lab Data Result diagrams: 12/28/19 17:35 12/28/19 17:35 Lab Results 04/24/20 04/24/20 04/24/20 Range/Units 17:35 17:35 17:35 WBC 8.4 (3.8-10.6) k/uL RBC 3.86 L (4.30-5.90) m/uL Hgb 12.5 L (13.0-17.5) gm/dL Hct 37.6 L (39.0-53.0) % MCV 97.4 (80.0-100.0) fL MCH 32.4 (25.0-35.0) pg MCHC 33.3 (31.0-37.0) g/dL RDW 13.4 (11.5-15.5) % Plt Count 212 (150-450) k/uL Neutrophils % 68 % Lymphocytes % 20 % Monocytes % 5 % Eosinophils % 4 % Basophils % 1 % Neutrophils # 5.8 (1.3-7.7) k/uL Lymphocytes # 1.7 (1.0-4.8) k/uL Monocytes # 0.4 (0-1.0) k/uL Eosinophils # 0.3 (0-0.7) k/uL Basophils # 0.0 (0-0.2) k/uL Sodium 138 (137-145) mmol/L Potassium 4.0 (3.5-5.1) mmol/L Chloride 105 (98-107) mmol/L Carbon Dioxide 24 (22-30) mmol/L Anion Gap 9 mmol/L BUN 17 (9-20) mg/dL Creatinine 1.04 (0.66-1.25) mg/dL Est GFR (CKD-EPI)AfAm 89 (>60 ml/min/1.73 sqM) Est GFR (CKD-EPI)NonAf 77 (>60 ml/min/1.73 sqM) Glucose 130 H (74-99) mg/dL Calcium 9.4 (8.4-10.2) mg/dL Total Bilirubin 0.4 (0.2-1.3) mg/dL AST 20 (17-59) U/L ALT 22 (4-49) U/L Alkaline Phosphatase 154 H (38-126) U/L Total Protein 7.5 (6.3-8.2) g/dL Albumin 4.1 (3.5-5.0) g/dL Amylase 52 (30-110) U/L Lipase 53 (23-300) U/L Urine Color Yellow Urine Appearance Cloudy (Clear) Urine pH 5.5 (5.0-8.0) Ur Specific [place] 1.014 (1.001-1.035) Urine Protein 1+ H (Negative) Urine Glucose (UA) Negative (Negative) Urine Ketones Negative (Negative) Urine Blood Small H (Negative) Urine Nitrite Negative (Negative) Urine Bilirubin Negative (Negative) Urine Urobilinogen <2.0 (<2.0) mg/dL Ur Leukocyte Esterase Large H (Negative) Urine RBC 7 H (0-5) /hpf Urine WBC >182 H (0-5) /hpf Urine WBC Clumps Few H (None) /hpf Ur Squamous Epith Cells <1 (0-4) /hpf Urine Bacteria Rare H (None) /hpf Hyaline Casts 1 (0-2) /lpf - Radiology Data Radiology results: report reviewed (CT abdomen and pelvis negative for kidney stones), image reviewed Disposition Clinical Impression: UTI (urinary tract infection), Cystitis Disposition: HOME SELF-CARE Condition: Good Instructions (If sedation given, give patient instructions): Urinary Tract Infection in Men (ED) Prescriptions: Ciprofloxacin HCl [Cipro] 500 mg PO Q12HR #20 tablet Is patient prescribed a controlled substance at d/c from ED?: No Referrals: Brown Millan [Primary Care Provider] - 1-2 days
[2019-12-28 17:52] LABS: Basophils % (A) 1 %; Eosinophils # (A) 0.3 k/uL (0-0.7); Eosinophils % (A) 4 %; HCT 37.6 % (39.0-53.0); HGB 12.5 gm/dL (13.0-17.5); Lymphocytes # (A) 1.7 k/uL (1.0-4.8); Lymphocytes % (A) 20 %; MCH 32.4 pg (25.0-35.0); MCHC 33.3 g/dL (31.0-37.0); MCV 97.4 fL (80.0-100.0); Mean Platelet Volume 7.9; Monocytes # (A) 0.4 k/uL (0-1.0); Monocytes % (A) 5 %; Neutrophils # (A) 5.8 k/uL (1.3-7.7); Neutrophils % (A) 68 %; Platelet Count 212 k/uL (150-450); RBC 3.86 m/uL (4.30-5.90); RDW 13.4 % (11.5-15.5); WBC 8.4 k/uL (3.8-10.6)
[2019-12-28 17:56] LABS: Appearance,Urine Cloudy (Clear); Bacteria,Urine Rare /hpf; Bilirubin,Urine Negative (Negative); Blood,Urine Small (Negative); Color,Urine Yellow; Glucose,Urine (UA) Negative (Negative); Hyaline Casts,Urine 1 /lpf (0-2); Ketones,Urine Negative (Negative); Leukocyte Esterase,Urine Large (Negative); Nitrite,Urine Negative (Negative); PH, Urine 5.5 (5.0-8.0); Protein,Urine 1+ (Negative); RBC,Urine 7 /hpf (0-5); Specific Gravity,Urine 1.014 (1.001-1.035); Squamous Epithelial Cell,Urine <1 /hpf (0-4); Urobilinogen,Urine <2.0 mg/dL (<2.0); WBC,Urine >182 /hpf (0-5)
[2019-12-28 18:01] LABS: Albumin 4.1 g/dL (3.5-5.0); Calcium 9.4 mg/dL (8.4-10.2); Total Bilirubin 0.4 mg/dL (0.2-1.3); Total Protein 7.5 g/dL (6.3-8.2)
--- NOTE | 2019-12-28 18:44 | CT ---
EXAMINATION TYPE: CT abdomen pelvis wo con DATE OF EXAM: 12/28/2019 COMPARISON: 10/17/2019 INDICATION: pain with urination. hx of renal stones. DLP: 933.7 mGycm, Automated exposure control for dose reduction was used. CONTRAST: 0 mL of Isovue 300. Study performed without Oral Contrast TECHNIQUE: Axial images were obtained from above the diaphragm to the pubic rami in the axial plane a t 5 mm thick sections. Reconstructed images are reviewed on the computer in the coronal plane. FINDINGS: Limited CT sections are obtained the lung bases. Some minimal increased opacities may be within the right middle lobe and lingular regions. Atelectasis is favored within the differential. Groundglass o pacities are not identified.. CT ABDOMEN: Liver: Normal Spleen: Normal Pancreas: Normal Adrenal glands: The adrenal glands are normal. Gallbladder: Decompressed. Kidneys: No masses are evident. No hydronephrosis is present. There are cysts on the mid medial lef t kidney measuring 3.3 cm 13 Hounsfield units and 5.4 cm and 9 Hounsfield units. There is a cyst on t he superior posterior lateral right kidney measuring 2.2 cm and 4 Hounsfield units. No renal stones are evident. Aorta: Normal Inferior vena cava: Normal. CT PELVIS: Loops of bowel within the abdomen and pelvis are normal. The studies performed without oral contr ast limiting bowel evaluation. Appendix: Normal as visualized. Urinary bladder: Partially decompressed. Urinary bladder has thickened wall. Genitourinary structures: S there is prominent. Some calcification is within the prostate. Osseous structures: No suspicious lytic or sclerotic lesions. IMPRESSIONS: 1. Bilateral renal cysts. Some wall thickening of the urinary bladder diffusely may be present. Nickolas elate for cystitis. This may be partially due to incomplete distention.
[2019-12-28] MEDS ORDERED: KETOROLAC 30 MG/ML 1 ML VIAL IVP STA (18:48)
[2019-12-28 19:32] VITALS: BP 175/95; PULSE 83; TEMP 98.9
== END 2019-12-28 19:32 | disposition home or self-care (01) ==
LOC: EC 16:57
DX: N30.90 Cystitis, unspecified without hematuria (principal); I10 Essential (primary) hypertension; F32.9 Major depressive disorder, single episode, unspecified; F17.200 Nicotine dependence, unspecified, uncomplicated; Z79.899 Other long term (current) drug therapy; Z88.6 Allergy status to analgesic agent
CPT/HCPCS: 36415; 80053; 82150; 83690; 85025; 81001; 87086; 87077; 87186; 74176; 99284; 96365; 96375; 96361; J2270; J0696

== ENCOUNTER → 2020-03-27 | Outpatient (CLI) | payer OTHER ==
--- NOTE | 2020-03-27 12:47 | CT ---
EXAMINATION TYPE: CT angio abd aorta w/Runoff DATE OF EXAM: 03/27/2020 COMPARISON: CT December 28, 2019 and October 17, 2019 HISTORY: Decreased blood flow to the legs per patient. CT DLP: 1217.8 mGycm, Automated Exposure Control for Dose Reduction was Utilized. CONTRAST: CT scan of the abdomen and pelvis with lower extremity runoff is performed without oral and with IV C ontrast, patient injected with 125 mL of Isovue 370. 3-D reconstructed images are created on an [employer] workstation and reviewed. FINDINGS: VASCULAR: Patent celiac artery, SMA, and MILTON . Patent bilateral single renal arteries. No significan t stenosis. Calcified plaque [place] origin. Mild calcified plaque right common iliac artery. No signific ant stenosis. Mild calcified plaque left internal iliac artery without significant stenosis. External iliac arteries are patent without significant plaque or stenosis. Patent bilateral common femoral arteries without significant plaque or stenosis. Patent superficial a nd deep femoral arteries bilaterally without significant plaque or stenosis. Patent popliteal arterie s bilaterally. No significant plaque or stenosis. Patent bifurcation and trifurcation with good three -vessel flow in the mid leg and good two-vessel flow in the distal legs bilaterally. No significant f ocal stenosis. Past hindfoot level evaluation suboptimal. LUNG BASES: Patchy bibasilar linear scarring and/or atelectasis. LIVER/GB: No significant abnormality is appreciated. PANCREAS: No significant abnormality is seen. SPLEEN: No significant abnormality is seen. ADRENALS: No significant abnormality is seen. KIDNEYS: Simple appearing thin-walled cysts throughout the left kidney redemonstrated. BOWEL: No significant abnormality is seen. PROSTATE/SEMINAL VESICLES: Mildly enlarged in size similar to prior. LYMPH NODES: No greater than 1cm abdominal or pelvic lymph nodes are appreciated. OSSEOUS STRUCTURES: No significant abnormality is seen. EXTREMITIES: No significant abnormality is seen. OTHER: No significant additional abnormality is seen. IMPRESSION: No significant large or small vessel occlusive disease or stenosis.
== END | disposition home or self-care (01) ==
LOC: RADCTMAIN 11:21
PROVIDERS: ATTEND Family Medicine
DX: I73.9 Peripheral vascular disease, unspecified (principal)
CPT/HCPCS: 75635; Q9967

== ENCOUNTER → 2020-08-18 | Outpatient (CLI) | payer OTHER | END | disposition home or self-care (01) | LOC: RADECHMAIN 11:47 | PROVIDERS: ATTEND Family Medicine | DX: Z53.9 Procedure and treatment not carried out, unspecified reason (principal) ==

== ENCOUNTER 2020-08-23 17:39 | Emergency (ER) | payer OTHER ==
[2020-08-23] MEDS ORDERED: MORPHINE SULFATE 4 MG/ML SYRINGE IM STA (18:08)
--- NOTE | 2020-08-23 18:52 | ED ---
General Adult HPI - General Chief complaint: Head Injury Stated complaint: Fall/Head Injury Time Seen by Provider: 08/23/20 17:51 Source: patient, family Limitations: no limitations - History of Present Illness Initial comments: 65 year-old male patient presents to the emergency department for evaluation after experiencing a fall. He states he was sitting in his chair watching TV when he fell asleep and fell forward striking his head on the coffee table. Patient is also reporting right jaw pain, right shoulder pain, and neck pain at the base of his skull. Patient denies any loss of consciousness. Denies current headache. He does report abrasion to his scalp, he is unsure when his last tetanus vaccine was given. Denies an radiating pain, numbness, or tingling in his arms or hands. Denies any other injuries. Patient denies any chest pain, shortness of breath, dizziness, weakness, abdominal pain, nausea, vomiting, or difficulties with bowel movements or urination. - Related Data Home Medications Medication Instructions Recorded Confirmed Metoprolol Tartrate [Lopressor] 50 mg PO BID PRN 10/19/19 08/23/20 Albuterol Inhaler [Ventolin Hfa 1 - 2 puff INHALATION RT-Q6H PRN 08/23/20 08/23/20 Inhaler] Aspirin EC [Ecotrin] 325 mg PO DAILY 08/23/20 08/23/20 Losartan Potassium 100 mg PO DAILY 08/23/20 08/23/20 NIFEdipine XL [Procardia Xl] 60 mg PO DAILY 08/23/20 08/23/20 Previous Rx's Medication Instructions Recorded Omeprazole [PriLOSEC] 20 mg PO AC-BRKFST #30 cap 10/14/19 Acetaminophen-Codeine 300-30mg 1 tab PO Q6H PRN #12 tablet 08/23/20 [Tylenol #3] Allergies Allergy/AdvReac Type Severity Reaction Status Date / Time NSAIDS (Non-Steroidal AdvReac kidney Verified 08/23/20 19:08 Anti-Inflamma issues Review of Systems ROS Statement: Those systems with pertinent positive or pertinent negative responses have been documented in the HPI. ROS Other: All systems not noted in ROS Statement are negative. Past Medical History Past Medical History: Atrial Fibrillation, Hypertension Additional Past Medical History / Comment(s): kidney stones History of Any Multi-Drug Resistant Organisms: None Reported Past Surgical History: Cholecystectomy, Orthopedic Surgery Additional Past Surgical History / Comment(s): Right knee, left shoulder Past Anesthesia/Blood Transfusion Reactions: No Reported Reaction Past Psychological History: Depression Smoking Status: Current every day smoker Past Alcohol Use History: None Reported Past Drug Use History: None Reported - Past Family History Father History Unknown: Yes Additional Family Medical History / Comment(s): LUNG CANCER Mother History Unknown: Yes Additional Family Medical History / Comment(s): UTERINE CANCER Brother(s) Additional Family Medical History / Comment(s): LUNG CANCER General Exam Limitations: no limitations General appearance: alert, in no apparent distress, other (Physical well- developed, well-nourished adult male patient in no acute distress. Vital signs upon presentation are temperature 98.3F, pulse 83, respirations 18, blood pressure 219/114, pulse ox 99% on room air.) Head exam: Present: other (There is superficial abrasion noted to the right parietal scalp, no swelling, no bony step-off or deformity noted with palpation on the site.) Eye exam: Present: normal appearance, PERRL, EOMI. Absent: scleral icterus, conjunctival injection, nystagmus, periorbital swelling Neck exam: Present: normal inspection, full ROM, other (There is superior cervical spinal tenderness, no bony step-off or deformity noted. ). Absent: tenderness, meningismus, lymphadenopathy Respiratory exam: Present: normal lung sounds bilaterally. Absent: respiratory distress, wheezes, rales, rhonchi, stridor Cardiovascular Exam: Present: regular rate, normal rhythm, normal heart sounds. Absent: systolic murmur, diastolic murmur, rubs, gallop, clicks GI/Abdominal exam: Present: soft, normal bowel sounds. Absent: distended, tenderness, guarding, rebound, rigid Neurological exam: Present: alert, oriented X3, CN II-XII intact Psychiatric exam: Present: normal affect, normal mood Skin exam: Present: warm, dry, intact, normal color. Absent: rash Course Vital Signs 08/23/20 08/23/20 08/23/20 17:40 17:45 19:36 Temperature 98.3 F Pulse Rate 83 84 Respiratory 18 16 Rate Blood Pressure 219/114 219/111 173/126 O2 Sat by Pulse 99 94 L Oximetry 08/23/20 20:02 Temperature 98.7 F Pulse Rate 86 Respiratory 18 Rate Blood Pressure 185/124 O2 Sat by Pulse 95 Oximetry - Reevaluation(s) Reevaluation #1: 08/23/20 18:00 C-collar applied during initial physical exam. Medical Decision Making - Medical Decision Making 65-year-old male patient presented to the emergency department today for evaluation after experiencing a fall. Physical examination did reveal abrasion to the right parietal scalp. He had cervical spinal tenderness right shoulder tenderness. CT brain C-spine was negative. X-ray of the right shoulder was negative. CT facial bones was negative. We did update his tetanus vaccine. He'll be discharged with pain medication prescription. Blood pressures were elevated on the department, he does take 3 blood pressure medications at home. He is instructed to keep a log call his primary care physician on Tuesday. Is instructed follow up with his primary care physician for recheck in 1-2 days. Return parameters were discussed in detail. They verbalize understanding and agree with this plan. - Radiology Data Radiology results: report reviewed, image reviewed CT brain and C-spine without contrast was obtained. Report is reviewed in its entirety. Impression by Dr. Guy shows spondylotic changes in the cervical spine. No fracture. Negative computed tomography scan of the brain. CT facial bones without contrast was obtained. Report was reviewed in its entirety. Impression by Dr. Guy shows no fracture seen. Temporom andibular joints appear normal. Mild hypertrophy of the nasal turbinates. 3 views of the right shoulder obtained. Report is reviewed in its entirety. Impression by Dr. Guy shows negative right shoulder exam. No fracture. Disposition Clinical Impression: Head injury, Cervical strain, Contusion of right shoulder Disposition: HOME SELF-CARE Condition: Good Instructions (If sedation given, give patient instructions): Head Injury (ED), Chronic Hypertension (ED), Contusion in Adults (ED) Additional Instructions: Follow-up with your primary care physician first thing Tuesday. Return to the emergency department for new, worsening, or concerning symptoms. Prescriptions: Acetaminophen-Codeine 300-30mg [Tylenol #3] 1 tab PO Q6H PRN #12 tablet PRN Reason: Pain Is patient prescribed a controlled substance at d/c from ED?: No Referrals: Brown Millan [Primary Care Provider] - 1-2 days Time of Disposition: 19:52
--- NOTE | 2020-08-23 19:19 | CT ---
EXAMINATION TYPE: CT brain willyine wo con DATE OF EXAM: 08/23/2020 COMPARISON: None HISTORY: right sided jaw pain following fall CT DLP: 1657.2 mGycm Automated exposure control for dose reduction was used. Images were obtained of the brain and cervical spine without contrast. Ventricles and sulci appear normal. There is no mass effect nor midline shift. There is no sign of in tracranial hemorrhage. The calvarium is intact. There is no evidence of cerebral edema. Skull base is intact. There is normal aeration of the mastoid sinuses. Cervical vertebra have normal alignment. Posterior elements are intact. Facet joints are intact. Ther e is narrowing of the disc spaces at C3-C4 and C5-6 and C6-7 with spur formation. IMPRESSION: Spondylotic changes in the cervical spine. No fracture. Negative CT scan of the brain.
--- NOTE | 2020-08-23 19:21 | CT ---
EXAMINATION TYPE: CT facial bones wo con DATE OF EXAM: 08/23/2020 COMPARISON: None HISTORY: right sided jaw pain following fall CT DLP: 506.5 mGycm Automated exposure control for dose reduction was used. Images were obtained from the bottom of the mandible to the top of the orbits without contrast. The nasal bone is intact. Orbital margins are intact. There is no evidence of retro-orbital mass. The re is normal aeration of the mastoid sinuses. There is no evidence of orbital blowout fracture. The m axilla is intact. The zygomatic arches appear normal. There is fairly normal aeration of the paranasa l sinuses. There is large nasal turbinates. There is minimal mucosal thickening left maxillary sinus. The temporomandibular joints appear intact. IMPRESSION: No fracture seen. Temporomandibular joints appear normal. Mild hypertrophy of the nasal turbinates.
--- NOTE | 2020-08-23 19:22 | XR ---
EXAMINATION TYPE: XR shoulder complete RT DATE OF EXAM: 08/23/2020 COMPARISON: NONE HISTORY: Shoulder pain TECHNIQUE: 3 views FINDINGS: I see no fracture nor dislocation. Joint spaces are normal. There are no pathologic calcifi cations. IMPRESSION: Negative right shoulder exam. No fracture.
[2020-08-23] MEDS ORDERED: HYDROcodone/APAP 5-325MG 1 EACH TAB PO STA (19:35)
[2020-08-23 20:04] VITALS: BP 185/124; PULSE 86; RESP 18; TEMP 98.7
== END 2020-08-23 20:04 | disposition home or self-care (01) ==
LOC: EC 17:39
DX: S16.1XXA Strain of muscle, fascia and tendon at neck level, initial encounter (principal); S40.011A Contusion of right shoulder, initial encounter; S00.01XA Abrasion of scalp, initial encounter; I10 Essential (primary) hypertension; F17.200 Nicotine dependence, unspecified, uncomplicated; Z79.82 Long term (current) use of aspirin; Z79.899 Other long term (current) drug therapy; Z88.6 Allergy status to analgesic agent; Z98.890 Other specified postprocedural states; W07.XXXA Fall from chair, initial encounter; Y93.84 Activity, sleeping; Y92.009 Unspecified place in unspecified non-institutional (private) residence as the place of occurrence of the external cause
CPT/HCPCS: 73030; 72125; 70486; 70450; 99284; 96372; J2270

== ENCOUNTER 2020-09-30 18:09 | Inpatient (IN) | payer OTHER ==
[2020-09-30] MEDS ORDERED: SODIUM CHLORIDE 0.9% 500 ML 500 ML IV STA (18:21)
[2020-09-30 18:34] LABS: Glucose,Whole Blood 148 mg/dL (75-99)
[2020-09-30 18:46] LABS: Basophils # (A) 0.1 k/uL (0-0.2); Basophils % (A) 0 %; Eosinophils # (A) 0.3 k/uL (0-0.7); Eosinophils % (A) 2 %; HCT 34.2 % (39.0-53.0); HGB 11.6 gm/dL (13.0-17.5); Lymphocytes # (A) 1.5 k/uL (1.0-4.8); Lymphocytes % (A) 14 %; MCH 32.9 pg (25.0-35.0); MCHC 33.8 g/dL (31.0-37.0); MCV 97.2 fL (80.0-100.0); Mean Platelet Volume 7.7; Monocytes # (A) 0.4 k/uL (0-1.0); Monocytes % (A) 4 %; Neutrophils # (A) 8.8 k/uL (1.3-7.7); Neutrophils % (A) 79 %; Platelet Count 203 k/uL (150-450); RBC 3.52 m/uL (4.30-5.90); RDW 13.9 % (11.5-15.5); WBC 11.3 k/uL (3.8-10.6)
--- NOTE | 2020-09-30 18:53 | XR ---
EXAMINATION TYPE: XR chest 2V DATE OF EXAM: 09/30/2020 COMPARISON: 10/17/2019 HISTORY: Chest pain TECHNIQUE: FINDINGS: Heart is normal. Lungs are clear of consolidation. There is small linear density left lung base. There are no hilar masses. Costophrenic angles show no fluid. There are chest leads. Bony thora x is intact. IMPRESSION: Minimal subsegmental atelectasis left lung base unchanged. Normal heart.
[2020-09-30 18:59] LABS: INR 0.9 (<1.2); Partial Thromboplastin Time 22.6 sec (22.0-30.0); Prothrombin Time 9.8 sec (9.0-12.0)
[2020-09-30 19:00] LABS: Albumin 3.6 g/dL (3.5-5.0); Calcium 8.7 mg/dL (8.4-10.2); Potassium 4.4 mmol/L (3.5-5.1); Total Bilirubin 0.4 mg/dL (0.2-1.3)
--- NOTE | 2020-09-30 19:06 | ED ---
Dizziness HPI - General Chief Complaint: Dizziness Stated Complaint: Chest Pain Time Seen by Provider: 09/30/20 18:15 Source: EMS Mode of arrival: EMS Limitations: no limitations - History of Present Illness Initial Comments: Patient is a 65-year-old male with past medical history of paroxysmal A. fib who presents emergency Department with an episode of dizziness. Patient reports that he was at home watching TV today. He had a sudden onset of panic which made him get up from his chair. States he felt as if he was going to pass out with significant dizziness. He went into the bathroom and landed of having to sit down. He ended up crawling across the floor to tell his how he felt. called EMS to bring him into the emergency room. The family was bradycardic with a mildly low blood pressure. Patient was complaining of a pressure sensation in his chest. He admits to 2 additional episodes. Reports that 6 weeks ago he had a similar event which he was able to "wait out". He had a second eposide one week later and followed up with his primary care doctor. Patient also sees Dr. Lai. He was in the emergency department last year for concern of heart attack. States he had a cardiac catheterization which was negative. He continues to take the same medications. Patient is on Lopressor twice daily and states he only takes it if his heart rate is greater than 65. He did take it this evening. Patient also mentions to me that he has been walking to [employer] to get his groceries. States that this was normally easy task for him however over the past couple of days he has had exertional dyspnea and the last trip he barely made it there. Denies ripping or tearing sensation. Admits to mild lower extremity edema. No history of DVT or PE. No history of heart failure. Denies taking excess of his medications. No nausea or vomiting. No abdominal pain. No other alleviating, precipitating or modifying factors - Related Data Home Medications Medication Instructions Recorded Confirmed Albuterol Inhaler [Ventolin Hfa 1 - 2 puff INHALATION RT-Q6H PRN 08/23/20 09/30/20 Inhaler] Losartan Potassium 100 mg PO DAILY 08/23/20 09/30/20 NIFEdipine XL [Procardia XL] 60 mg PO DAILY 08/23/20 09/30/20 Previous Rx's Medication Instructions Recorded Omeprazole [PriLOSEC] 20 mg PO AC-BRKFST #30 cap 10/14/19 Aspirin 81 mg PO DAILY chew 10/02/20 Allergies Allergy/AdvReac Type Severity Reaction Status Date / Time NSAIDS (Non-Steroidal AdvReac kidney Verified 09/30/20 19:00 Anti-Inflamma issues Review of Systems ROS Statement: Those systems with pertinent positive or pertinent negative responses have been documented in the HPI. ROS Other: All systems not noted in ROS Statement are negative. Past Medical History Past Medical History: Atrial Fibrillation, Hypertension Additional Past Medical History / Comment(s): kidney stones, History of Any Multi-Drug Resistant Organisms: None Reported Past Surgical History: Cholecystectomy, Heart Catheterization, Orthopedic Surgery Additional Past Surgical History / Comment(s): Right knee, left shoulder, Past Anesthesia/Blood Transfusion Reactions: No Reported Reaction Past Psychological History: Depression Smoking Status: Current every day smoker Past Alcohol Use History: None Reported Past Drug Use History: None Reported - Past Family History Father History Unknown: Yes Additional Family Medical History / Comment(s): LUNG CANCER Mother History Unknown: Yes Additional Family Medical History / Comment(s): UTERINE CANCER Brother(s) Additional Family Medical History / Comment(s): LUNG CANCER General Exam Limitations: no limitations General appearance: alert, in no apparent distress Head exam: Present: atraumatic, normocephalic, normal inspection Eye exam: Present: normal appearance, PERRL, EOMI. Absent: scleral icterus, conjunctival injection, periorbital swelling ENT exam: Present: normal exam, mucous membranes moist Neck exam: Present: normal inspection. Absent: tenderness, meningismus, lymphadenopathy Respiratory exam: Present: normal lung sounds bilaterally. Absent: respiratory distress, wheezes, rales, rhonchi, stridor Cardiovascular Exam: Present: normal rhythm, bradycardia, normal heart sounds. Absent: systolic murmur, diastolic murmur, rubs, gallop, clicks GI/Abdominal exam: Present: soft, normal bowel sounds. Absent: distended, tenderness, guarding, rebound, rigid Extremities exam: Present: normal inspection, full ROM, normal capillary refill. Absent: tenderness, pedal edema, joint swelling, calf tenderness Back exam: Present: normal inspection Neurological exam: Present: alert, oriented X3, CN II-XII intact Psychiatric exam: Present: normal affect, normal mood Skin exam: Present: warm, dry, intact, normal color. Absent: rash Course Vital Signs 09/30/20 09/30/20 09/30/20 18:13 18:42 18:56 Temperature 98.0 F Pulse Rate 46 L 43 L Pulse Rate [ 43 L Sitting Hose Wrapper] Pulse Rate [ 43 L Supine Hose Wrapper] Respiratory 18 18 Rate Blood Pressure 104/79 109/66 Blood Pressure 71/59 [Left Arm Sitting] Blood Pressure 109/67 [Left Arm Supine] O2 Sat by Pulse 91 L 95 Oximetry 09/30/20 09/30/20 09/30/20 19:18 20:29 22:15 Temperature 98.3 F 97.8 F Pulse Rate 43 L 40 L 49 L Pulse Rate [ Sitting Hose Wrapper] Pulse Rate [ Supine Hose Wrapper] Respiratory 18 18 18 Rate Blood Pressure 106/60 110/87 131/84 Blood Pressure [Left Arm Sitting] Blood Pressure [Left Arm Supine] O2 Sat by Pulse 95 95 95 Oximetry - Reevaluation(s) Reevaluation #1: Spoke with Dr. Esposito in regards to the patient's symptoms as well as his EKG and laboratory studies. Dr. Lai is recommend holding his Lopressor. Echo ordered for the morning. Patient will be placed in the ICU. TVP at bedside. We will trend the patient's troponins. Will not heparinize at this time. Also recommends TSH and T4 09/30/20 20:07 EKG Findings - EKG Comments: EKG Findings:: EKG performed at 1813 demonstrates a wide QRS rhythm. Rate of 46. QRS 120. QTC of 421. Inverted T waves with some ST depression in lead 3. Inverted T-wave in aVF. J-point elevation in 1 and aVL. This is compared to patient's previous EKG from October 2019 and is similar in morphology. Repeat EKG done at 1920 demonstrates a junctional bradycardia with a rate of 41. QRS 114. QTC of 407. Continues to have inverted T-wave and ST depression in lead 3. J-point elevation in 1 and aVL. Medical Decision Making - Medical Decision Making Upon arrival patient was placed into room 16. A thorough history and physical exam was performed. Patient denies any active chest pain at this time. EKG is obtained and does demonstrate some J-point elevation in 1 and aVL. Inverted T- wave and ST depression in lead 3. This is compared to patient's previous EKG from October of last year and is the same morphology. Laboratory studies are conducted in the chest x-rays performed. Results are discussed with Dr. Lai, the patients groover and turner. He recommends placement in the ICU with a TVP at bedside. Requesting a TSH and T4. Hold patient's Lopressor. Echo ordered. Will trend the patient's troponins. spoke with doctor shahnaz who agreed to admit the patient. Patient agreed to this and is awaiting a bed on the floor - Lab Data Result diagrams: 10/01/20 03:32 10/01/20 03:32 Lab Results 09/30/20 09/30/20 09/30/20 Range/Units 18:21 18:21 18:21 WBC 11.3 H (3.8-10.6) k/uL RBC 3.52 L (4.30-5.90) m/uL Hgb 11.6 L (13.0-17.5) gm/dL Hct 34.2 L (39.0-53.0) % MCV 97.2 (80.0-100.0) fL MCH 32.9 (25.0-35.0) pg MCHC 33.8 (31.0-37.0) g/dL RDW 13.9 (11.5-15.5) % Plt Count 203 (150-450) k/uL MPV 7.7 Neutrophils % 79 % Lymphocytes % 14 % Monocytes % 4 % Eosinophils % 2 % Basophils % 0 % Neutrophils # 8.8 H (1.3-7.7) k/uL Lymphocytes # 1.5 (1.0-4.8) k/uL Monocytes # 0.4 (0-1.0) k/uL Eosinophils # 0.3 (0-0.7) k/uL Basophils # 0.1 (0-0.2) k/uL PT 9.8 (9.0-12.0) sec INR 0.9 (<1.2) APTT 22.6 (22.0-30.0) sec Sodium 137 (137-145) mmol/L Potassium 4.4 (3.5-5.1) mmol/L Chloride 106 (98-107) mmol/L Carbon Dioxide 20 L (22-30) mmol/L Anion Gap 11 mmol/L BUN 18 (9-20) mg/dL Creatinine 1.53 H (0.66-1.25) mg/dL Est GFR (CKD-EPI)AfAm 55 (>60 ml/min/1.73 sqM) Est GFR (CKD-EPI)NonAf 48 (>60 ml/min/1.73 sqM) Glucose 133 H (74-99) mg/dL POC Glucose (mg/dL) (75-99) mg/dL POC Glu Humanities [employer] L[employer] Professor ID Calcium 8.7 (8.4-10.2) mg/dL Magnesium 2.0 (1.6-2.3) mg/dL Total Bilirubin 0.4 (0.2-1.3) mg/dL AST 60 H (17-59) U/L ALT 52 H (4-49) U/L Alkaline Phosphatase 160 H (38-126) U/L Troponin I (0.000-0.034) ng/mL Total Protein 7.0 (6.3-8.2) g/dL Albumin 3.6 (3.5-5.0) g/dL TSH (0.465-4.680) mIU/L 09/30/20 09/30/20 09/30/20 Range/Units 18:21 18:21 18:33 WBC (3.8-10.6) k/uL RBC (4.30-5.90) m/uL Hgb (13.0-17.5) gm/dL Hct (39.0-53.0) % MCV (80.0-100.0) fL MCH (25.0-35.0) pg MCHC (31.0-37.0) g/dL RDW (11.5-15.5) % Plt Count (150-450) k/uL MPV Neutrophils % % Lymphocytes % % Monocytes % % Eosinophils % % Basophils % % Neutrophils # (1.3-7.7) k/uL Lymphocytes # (1.0-4.8) k/uL Monocytes # (0-1.0) k/uL Eosinophils # (0-0.7) k/uL Basophils # (0-0.2) k/uL PT (9.0-12.0) sec INR (<1.2) APTT (22.0-30.0) sec Sodium (137-145) mmol/L Potassium (3.5-5.1) mmol/L Chloride (98-107) mmol/L Carbon Dioxide (22-30) mmol/L Anion Gap mmol/L BUN (9-20) mg/dL Creatinine (0.66-1.25) mg/dL Est GFR (CKD-EPI)AfAm (>60 ml/min/1.73 sqM) Est GFR (CKD-EPI)NonAf (>60 ml/min/1.73 sqM) Glucose (74-99) mg/dL POC Glucose (mg/dL) 148 H (75-99) mg/dL POC Glu Humanities [employer] Languages Professor ID Elva Delgadillo Calcium (8.4-10.2) mg/dL Magnesium (1.6-2.3) mg/dL Total Bilirubin (0.2-1.3) mg/dL AST (17-59) U/L ALT (4-49) U/L Alkaline Phosphatase (38-126) U/L Troponin I <0.012 (0.000-0.034) ng/mL Total Protein (6.3-8.2) g/dL Albumin (3.5-5.0) g/dL TSH 1.750 (0.465-4.680) mIU/L Disposition Clinical Impression: Orthostatic hypotension, Bradycardia Disposition: ADMITTED IP TO THIS [facility] Condition: Good Is patient prescribed a controlled substance at d/c from ED?: No Decision to Admit Reason: Admit from EC Decision Date: 09/30/20 Decision Time: 20:19
[2020-09-30] MEDS ORDERED: NALOXONE 0.4 MG/ML 1 ML VIAL IV PRN (20:20)
[2020-09-30] MEDS ORDERED: fentaNYL (PF) 50 MCG/ML 2 ML AMP IVP STA (20:28)
[2020-09-30] MEDS: SODIUM CHLORIDE 0.9% 1,000 ML IV SCH (20:35)
[2020-09-30 22:50] LABS: Glucose,Whole Blood 104 mg/dL (75-99)
[2020-09-30] MEDS ORDERED: IPRATROPIUM-ALBUTEROL 3 ML NEB INHALATION PRN (23:18)
[2020-09-30] MEDS ORDERED: LORazepam 1 MG TAB PO PRN (23:25)
--- NOTE | 2020-09-30 23:40 | P.HPIM ---
History of Present Illness H&P Date: 09/30/20 Chief Complaint: dizziness 65 year old male with hypertension , and paroxysmal afib patient comes in due to severe dizzy spell. he was watching tv, when he had uneasy feeling in his chest, seemed like anxiety episode, so he got up went to bathroom and started feeling very dizzy, he had to lay down on the floor and crawl out to the other room asking his to call 911 as he was not improving , he denies chest pain , but does report occasional exertional dyspnea over the past week when he does his usual daily stroll to [employer] that he seemed to not be able to handle it recently over the past week. he also adds, an episode of syncope about 2 weeks ago that happened once, he saw his PCP later. patient denies chest pain , but does report coming to the hospital for chest pain about a year ago , he had left heart cath , showed no significant obstructive coronary disease. otherwise, he denies any recent URI symptoms, GI symptoms, focal neuro deficits, he denies any bleeding, fever or chills. he is currently laying comfortable in bed. he takes metoprolol as needed when his heart rate is above 65 bmp. and he did take it this evening in the ED, he was found to have bradycardia , and junctional rhythm on EKG. otherwise blood work overall unremarkable except for mild TYLER case was discussed with cardiology by ER doc. Review of Systems Pertinent positives as noted in HPI. All other systems were reviewed and are negative Past Medical History Past Medical History: Atrial Fibrillation, Hypertension Additional Past Medical History / Comment(s): kidney stones, History of Any Multi-Drug Resistant Organisms: None Reported Past Surgical History: Cholecystectomy, Heart Catheterization, Orthopedic Surgery Additional Past Surgical History / Comment(s): Right knee, left shoulder, Past Anesthesia/Blood Transfusion Reactions: No Reported Reaction Past Psychological History: Depression Smoking Status: Current every day smoker Past Alcohol Use History: None Reported Past Drug Use History: None Reported - Past Family History Father History Unknown: Yes Additional Family Medical History / Comment(s): LUNG CANCER Mother History Unknown: Yes Additional Family Medical History / Comment(s): UTERINE CANCER Brother(s) Additional Family Medical History / Comment(s): LUNG CANCER Medications and Allergies Home Medications Medication Instructions Recorded Confirmed Type Omeprazole [PriLOSEC] 20 mg PO -BRKFST #30 cap 10/14/19 09/30/20 Rx Metoprolol Tartrate [Lopressor] 50 mg PO BID PRN 10/19/19 09/30/20 History Albuterol Inhaler [Ventolin Hfa 1 - 2 puff INHALATION RT-Q6H PRN 08/23/20 09/30/20 History Inhaler] Aspirin EC [Ecotrin] 325 mg PO DAILY 08/23/20 09/30/20 History Losartan Potassium 100 mg PO DAILY 08/23/20 09/30/20 History NIFEdipine XL [Procardia Xl] 60 mg PO DAILY 08/23/20 09/30/20 History Allergies Allergy/AdvReac Type Severity Reaction Status Date / Time NSAIDS (Non-Steroidal AdvReac kidney Verified 09/30/20 19:00 Anti-Inflamma issues Physical Exam Vitals: Vital Signs Temp Pulse Pulse Pulse Resp BP BP 09/30/20 20:29 98.3 F 40 L 18 110/87 09/30/20 19:18 43 L 18 106/60 09/30/20 18:56 43 L 18 109/66 09/30/20 18:42 43 L 43 L 71/59 09/30/20 18:13 98.0 F 46 L 18 104/79 BP Pulse Ox 09/30/20 20:29 95 09/30/20 19:18 95 09/30/20 18:56 95 09/30/20 18:42 109/67 09/30/20 18:13 91 L Intake and Output 09/30/20 09/30/20 09/30/20 06:59 14:59 22:59 Other: Weight 102.058 kg Constitutional: No acute distress, conversant, pleasant Eyes: Anicteric sclerae, moist conjunctiva, Pupils equal round reactive to light ENMT: NC/AT Oropharynx clear, no erythema, or exudates Neck: Supple, FROM, no masses, or JVD No carotid bruits No thyromegaly Lungs: Clear to auscultation Clear to percussion Normal respiratory effort, no accessory muscle use Cardiovascular: Heart bradycardia , regular rhythm No murmurs, gallops, or rubs No peripheral edema Abdominal: Soft Nontender, no guarding, rebound or rigidity Abdomen moving with respiration Normoactive bowel sounds No hepatomegaly, No splenomegaly No palpable mass No abdominal wall hernia noted Skin: Normal temperature, tone, texture, turgor No induration No subcutaneous nodules No rash, lesions No ulcers Extremities: No digital cyanosis No clubbing Pedal pulses intact and symmetrical Radial pulses intact and symmetrical No calf tenderness Psychiatric: Alert and oriented to person, place and time Appropriate affect fair judgement Neuro Muscles Strength 5/5 in all 4 extremities Sensation to light touch grossly present throughout Cranial nerves II-XII grossly intact No focal sensory deficits Lymphatics: no palpable cervical or supraclavicular , or inguinal lymph nodes Results CBC & Chem 7: 09/30/20 18:21 09/30/20 18:21 Labs: Abnormal Lab Results - Last 24 Hours (Table) 09/30/20 09/30/20 09/30/20 Range/Units 18:21 18:21 18:33 WBC 11.3 H (3.8-10.6) k/uL RBC 3.52 L (4.30-5.90) m/uL Hgb 11.6 L (13.0-17.5) gm/dL Hct 34.2 L (39.0-53.0) % Neutrophils # 8.8 H (1.3-7.7) k/uL Carbon Dioxide 20 L (22-30) mmol/L Creatinine 1.53 H (0.66-1.25) mg/dL Glucose 133 H (74-99) mg/dL POC Glucose (mg/dL) 148 H (75-99) mg/dL AST 60 H (17-59) U/L ALT 52 H (4-49) U/L Alkaline Phosphatase 160 H (38-126) U/L Assessment and Plan Assessment: symptomatic bradycardia EKG with junctional rhythm TYLER hypotension P. afib not on blood thinners daily smoker , and chew tobacco plan trops negative , no acute st changes on EKG hold metoprolol trend trops ICU admission , transcutaneous pacing at bedside hold BP meds parameters for hypotension hold losartan for TYLER IVF hydration with normal saline check thyroid function follow up labs monitor vital signs patient monitor 10/2019 negative left heart cath (no significant obstructive coronary artery disease), LVEF 65% nicotine repolacement therapy duoneb PRN ativan PRN ECHO cardiogram CODE STATUS:full code DVT prophylaxis: heparin sc tid Discussed with: Patient, ER Anticipated length of stay > than [address]: home A total of 75 minutes was spent on the care of this complex patient more than 50% of the time was spent in counseling and care coordination.
[2020-10-01] MEDS: HYDROcodone/APAP 5-325MG 1 EACH TAB PO PRN ×4 (00:01→21:08)
[2020-10-01] MEDS: HEPARIN SODIUM,PORCINE 5,000 UNIT/ML 1 ML VIAL SQ SCH ×4 (00:02→23:11)
[2020-10-01] MEDS: NICOTINE 14MG/24HR PATCH TRANSDERM SCH ×2 (00:02→07:58)
[2020-10-01 03:48] LABS: Basophils % (A) 0 %; Eosinophils # (A) 0.2 k/uL (0-0.7); Eosinophils % (A) 3 %; HGB 10.7 gm/dL (13.0-17.5); Lymphocytes # (A) 1.5 k/uL (1.0-4.8); Lymphocytes % (A) 19 %; MCHC 32.5 g/dL (31.0-37.0); MCV 98.3 fL (80.0-100.0); Mean Platelet Volume 7.7; Monocytes # (A) 0.3 k/uL (0-1.0); Monocytes % (A) 3 %; Neutrophils # (A) 5.8 k/uL (1.3-7.7); Neutrophils % (A) 73 %; Platelet Count 212 k/uL (150-450); RBC 3.36 m/uL (4.30-5.90); RDW 14.4 % (11.5-15.5); WBC 7.9 k/uL (3.8-10.6)
[2020-10-01 04:21] LABS: Calcium 8.4 mg/dL (8.4-10.2); Potassium 4.5 mmol/L (3.5-5.1)
[2020-10-01] MEDS: ASPIRIN 81 MG PO SCH (07:56)
[2020-10-01] MEDS: PANTOPRAZOLE 40 MG TABLET PO SCH (07:56)
[2020-10-01] MEDS: SODIUM CHLORIDE 0.9% 1,000 ML IV SCH ×2 (08:00→21:09)
--- NOTE | 2020-10-01 08:42 | XR ---
EXAMINATION TYPE: XR chest 1V portable DATE OF EXAM: 10/01/2020 COMPARISON: Prior chest x-ray 09/30/2020 HISTORY: Abnormal chest x-ray, question fluid overload TECHNIQUE: Single frontal view of the chest is obtained. FINDINGS: Interstitium is increased. Patchy bibasilar density is present. No evident pneumothorax or pleural effusion. Cardiomediastinal silhouette is unchanged, heart size is borderline increased like ly due to rotation, technique. There are overlying leads. IMPRESSION: Probably for pneumonia, basilar atelectasis, difficult to exclude interstitial edema.
[2020-10-01] MEDS ORDERED: LOSARTAN 50 MG TAB PO SCH (09:00)
[2020-10-01] MEDS ORDERED: ASPIRIN 325 MG TAB PO SCH (09:00)
--- NOTE | 2020-10-01 09:14 | CONS ---
CONSULTATION This is a 65-year-old obese gentleman with a history of hypertensive cardiovascular disease who sees Dr. Lai in the outpatient setting. About 11 months ago he had symptoms of chest discomfort and had multiple evaluations including a CT scan of the thoracic aorta, which did not reveal any significant abnormalities. He also had a coronary angiography which did not reveal any significant obstructive CAD. He is on a combination of beta blockers, nifedipine, and losartan for blood pressure control. He came into the hospital yesterday mainly with complaints of having a sudden panic which made him get up from the chair where he was watching TV and he went into the bathroom and then he had to sit down for a while. He felt dizzy, lightheaded and he called his and she called EMS. When they evaluated him, he was bradycardic with a junctional rhythm. He had a similar event apparently of 6 weeks ago and he went and saw Dr. Lai. The patient indicates to me that he takes Lopressor 50 mg twice daily only if his heart rate is greater than 65, but he did take one dose at 50 mg at 4:30 p.m. yesterday. When he went and was watching TV when he had an attack of a panic-like sensation followed by bradycardia. This morning he is in sinus rhythm, but on arrival EKG revealed junctional rhythm with bradycardia. He is in sinus rhythm with a rate of about 64 beats per minute, asymptomatic, resting comfortably with a good blood pressure. PAST MEDICAL HISTORY: Past medical history is remarkable for: 1. Hypertension. 2. Atypical chest pain with a negative cardiac cath and negative CT angio of the chest. 3. He is status post cholecystectomy and some orthopedic surgery. MEDICATIONS: He is on nifedipine 60 mg daily, losartan 100 mg daily, aspirin 325 mg daily, metoprolol tartrate 50 mg b.i.d., which he insists he takes when the heart rate is more than 60. He also takes omeprazole 20 mg daily. The patient is a smoker. He does not use alcohol on a regular basis. EKG on arrival revealed what seems to be a junctional rhythm with some IVCD type picture and he also had IVCD with a junctional rhythm and nonspecific ST abnormality was noted. His laboratory data suggests that his troponin was normal. His thyroid functions are normal. Electrolytes are normal, particularly he has no hyperkalemia. PHYSICAL EXAMINATION: On examination, blood pressure is 130/70, pulse rate is about 63 per minute. HEENT: Unremarkable. Fundus was not examined by me. Neck is supple. There is no JVD. I do not hear a carotid bruit. Heart exam reveals S1, S2 heard normally. No significant murmurs. Lungs are clear. Abdomen is soft, nontender. Lower extremities reveal diminished pulses. No edema. Central nervous system is normal. EKG initially revealed a junctional rhythm with mild IVCD and nonspecific ST-T changes. IMPRESSION: 1. Acute vasovagal episode with bradycardia in the setting of 50 mg of metoprolol tartrate. 2. Hypertension. 3. No evidence of coronary artery disease based on cardiac cath less than a year ago. RECOMMENDATIONS: I am recommending that he should not be on beta blockers. We will do an EKG this morning and echocardiogram as well. Previous echo was normal. I will increase activity and see his chronotropic response with increased physical activity. Patient can be moved out of ICU to telemetry today. He has had symptomatic bradycardia, but he is doing better this morning. Thank you very much for the consult. MMODL / IJN: [id number] /
[2020-10-01] MEDS: ALPRAZolam 0.25 MG TAB PO PRN ×2 (09:15→23:11)
--- NOTE | 2020-10-01 09:26 | P.PN ---
Subjective Progress Note Date: 10/01/20 No new complaints. Pt doing well without need for external pacing. No further episodes of syncope or dizziness while in house. Objective - Vital Signs Vital signs: Vital Signs Temp 97.9 F 10/01/20 08:00 Pulse 66 10/01/20 08:00 Resp 17 10/01/20 08:00 BP 128/78 10/01/20 08:00 Pulse Ox 93 L 10/01/20 08:00 Intake & Output 09/30/20 10/01/20 10/01/20 18:59 06:59 18:59 Intake Total 1050 195 Output Total 925 500 Balance 125 -305 Weight 102.058 kg 109.5 kg Intake: IV 950 95 Sodium Chloride 0.9% 1, 950 95 000 ml @ 75 mls/hr IV . [id number] JOSEF Rx#:[id number] Oral 100 100 Output: Urine 925 500 Other: Voiding Method Urinal # Bowel Movements 1 - Exam Gen: awake, alert HEENT: normocephalic, atraumatic, good hearing acuity, moist mucous membranes Resp: good air exchange, breathing comfortably with no accessory muscle use CVS: good distal perfusion x 4, GI: soft, NTTP, ND : no SPT, no CVAT MSK: no pitting edema, no clubbing, Aviles catheter not present Neuro: non-focal, moving all extremities Psych: cooperative, euthymic mood - Labs CBC & Chem 7: 10/01/20 03:32 10/01/20 03:32 Labs: Abnormal Lab Results - Last 24 Hours (Table) 09/30/20 09/30/20 09/30/20 Range/Units 18:21 18:21 18:33 WBC 11.3 H (3.8-10.6) k/uL RBC 3.52 L (4.30-5.90) m/uL Hgb 11.6 L (13.0-17.5) gm/dL Hct 34.2 L (39.0-53.0) % Neutrophils # 8.8 H (1.3-7.7) k/uL Carbon Dioxide 20 L (22-30) mmol/L Creatinine 1.53 H (0.66-1.25) mg/dL Glucose 133 H (74-99) mg/dL POC Glucose (mg/dL) 148 H (75-99) mg/dL AST 60 H (17-59) U/L ALT 52 H (4-49) U/L Alkaline Phosphatase 160 H (38-126) U/L 09/30/20 10/01/20 Range/Units 22:48 03:32 WBC (3.8-10.6) k/uL RBC 3.36 L (4.30-5.90) m/uL Hgb 10.7 L (13.0-17.5) gm/dL Hct 33.0 L (39.0-53.0) % Neutrophils # (1.3-7.7) k/uL Carbon Dioxide (22-30) mmol/L Creatinine (0.66-1.25) mg/dL Glucose (74-99) mg/dL POC Glucose (mg/dL) 104 H (75-99) mg/dL AST (17-59) U/L ALT (4-49) U/L Alkaline Phosphatase (38-126) U/L Assessment and Plan Assessment: symptomatic bradycardia EKG with junctional rhythm TYLER hypotension P. afib not on blood thinners daily smoker , and chew tobacco plan trops negative , no acute st changes on EKG hold metoprolol trend trops ICU admission , transcutaneous pacing at bedside hold BP meds parameters for hypotension hold losartan for TYLER IVF hydration with normal saline check thyroid function follow up labs monitor vital signs security monitor 10/2019 negative left heart cath (no significant obstructive coronary artery disease), LVEF 65% nicotine repolacement therapy duoneb PRN ativan PRN ECHO cardiogram CODE STATUS:full code DVT prophylaxis: heparin sc tid Discussed with: Patient, ER Anticipated length of stay > than [address]: home
--- NOTE | 2020-10-01 10:37 | ECHOF ---
Referral Reason:bradycardia, chest pain MEASUREMENTS -------- HEIGHT: 175.3 cm WEIGHT: 109.3 kg BP: 124/79 RVIDd: 3.3 cm (< 3.3) IVSd: 1.5 cm (0.6 - 1.1) LVIDd: 5.0 cm (3.9 - 5.3) LVPWd: 1.4 cm (0.6 - 1.1) IVSs: 1.9 cm LVIDs: 3.1 cm LVPWs: 1.8 cm LA Diam: 3.1 cm (2.7 - 3.8) Ao Diam: 3.5 cm (2.0 - 3.7) MV EXCURSION: 12.169 mm (> 18.000) MV EF SLOPE: 163 mm/s (70 - 150) EPSS: 0.8 cm MV E Keyon: 0.87 m/s MV DecT: 204 ms MV A Keyon: 0.74 m/s MV E/A Ratio: 1.18 RAP: 5.00 mmHg RVSP: 39.58 mmHg FINDINGS -------- Sinus rhythm. This was a technically difficult study with suboptimal views. The left ventricular size is normal. There is moderate concentric left ventricular hypertrophy. O verall left ventricular systolic function is normal with, an EF between 55 - 60 %. The right ventricle is mildly enlarged. The left atrium is normal in size. The right atrial size is normal. 3 ml of Lumason was utilized for enhancement of images. The aortic valve was not well visualized. The mitral valve is normal. There is trace mitral regurgitation. Mild tricuspid regurgitation present. There is mild pulmonary hypertension. The right ventricular systolic pressure, as measured by Doppler, is 39.58mmHg. The pulmonic valve was not well visualized. The aortic root size is normal. IVC Not well visulized. There is no pericardial effusion. CONCLUSIONS -------- 1. This was a technically difficult study with suboptimal views. 2. There is moderate concentric left ventricular hypertrophy. 3. Overall left ventricular systolic function is normal with, an EF between 55 - 60 %. 4. The right ventricle is mildly enlarged. 5. 3 ml of Lumason was utilized for enhancement of images. 6. Mild tricuspid regurgitation present. 7. There is mild pulmonary hypertension. 8. There is no pericardial effusion. [employer]: Mary Ann Patrick [facility]
--- NOTE | 2020-10-01 13:51 | P.CNPUL ---
History of Present Illness Consult date: 10/01/20 Requesting physician: Edil Lester Reason for consult: other (Critical care management) Chief complaint: Dizziness, weakness History of present illness: This is a 65-year-old gentleman with a known history of paroxysmal atrial fibrillation, hypertension, kidney stones, osteoarthritis, depression, chronic and ongoing tobacco dependence. He is maintained on metoprolol outpatient setting that he uses as needed for heart rate greater than 65. He did take his Lopressor last evening. Subsequently he presented to the emergency room with significant weakness and dizziness. He was sent to the bathroom and was quite dizzy ending up on the floor. EMS was called and he was found to be quite bradycardic and slightly hypotensive. This was his third episode. Prior he did not require hospitalization. EKG was revealing a junctional bradycardia. Troponins were negative. He was admitted VAC for closer observation. He is seen today in consultation in the ICU. He is currently sitting up in bed. Awake and alert in no acute distress. Current heart rate 66. Hemodynamically stable. Echocardiogram revealed preserved left ventricular systolic function with ejection fraction 55-60%. Chest x-ray reveals basilar atelectasis. Possible interstitial edema. White count 7.9. Hemoglobin 10.7. Sedimentation 7. Potassium 4.5. Creatinine 1.16. He was initiated on bronchodilators. Hep sanju for DVT prophylaxis. Xanax for his anxiety. NicoDerm patches in place. Denies any current chest discomfort, dizziness or lightheadedness. No shortness of breath, cough or congestion. Review of Systems REVIEW OF SYSTEMS: CONSTITUTIONAL: Generalized weakness, dizziness. Anxiety. Denies any recent significant weight loss or weight gain. EYES: Denies change in vision. EARS, NOSE, MOUTH, THROAT: Denies headaches, denies sore throat. CARDIOVASCULAR: Denies chest pain, palpitations or syncopal episodes. RESPIRATORY: Denies shortness of breath, cough, congestion or hemoptysis. GASTROINTESTINAL: Denies change in appetite, denies abdominal pain GENITOURINARY: Denies hematuria, denies infections. MUSKULOSKELETAL: Denies pain, denies swelling. INTEGUMENTARY: Denies rash, denies eczema. NEUROLOGICAL: Denies recent memory loss, no recent seizure activity. PSYCHIATRIC: Denies anxiety, denies depression. HEMATOLOGIC/LYMPHATIC: Denies anemia, denies enlarged lymph nodes. Past Medical History Past Medical History: Atrial Fibrillation, Hypertension Additional Past Medical History / Comment(s): kidney stones, History of Any Multi-Drug Resistant Organisms: None Reported Past Surgical History: Cholecystectomy, Heart Catheterization, Orthopedic Garcia rgery Additional Past Surgical History / Comment(s): Right knee, left shoulder, Past Anesthesia/Blood Transfusion Reactions: No Reported Reaction Past Psychological History: Depression Smoking Status: Current every day smoker Past Alcohol Use History: None Reported Past Drug Use History: None Reported - Past Family History Father History Unknown: Yes Additional Family Medical History / Comment(s): LUNG CANCER Mother History Unknown: Yes Additional Family Medical History / Comment(s): UTERINE CANCER Brother(s) Additional Family Medical History / Comment(s): LUNG CANCER Medications and Allergies Home Medications Medication Instructions Recorded Confirmed Type Omeprazole [PriLOSEC] 20 mg PO AC-BRKFST #30 cap 10/14/19 09/30/20 Rx Metoprolol Tartrate [Lopressor] 50 mg PO BID PRN 10/19/19 09/30/20 History Albuterol Inhaler [Ventolin Hfa 1 - 2 puff INHALATION RT-Q6H PRN 08/23/20 09/30/20 History Inhaler] Aspirin EC [Ecotrin] 325 mg PO DAILY 08/23/20 09/30/20 History Losartan Potassium 100 mg PO DAILY 08/23/20 09/30/20 History NIFEdipine XL [Procardia Xl] 60 mg PO DAILY 08/23/20 09/30/20 History Allergies Allergy/AdvReac Type Severity Reaction Status Date / Time NSAIDS (Non-Steroidal AdvReac kidney Verified 09/30/20 19:00 Anti-Inflamma issues Physical Exam Vitals: Vital Signs Temp Pulse Pulse Pulse Pulse Resp BP 10/01/20 08:00 97.9 F 66 17 128/78 10/01/20 07:00 52 L 16 138/88 10/01/20 06:00 56 L 16 124/79 10/01/20 05:00 53 L 19 141/89 10/01/20 04:00 97.9 F 59 L 20 127/81 10/01/20 03:00 55 L 13 117/75 10/01/20 02:00 51 L 18 128/83 10/01/20 01:00 53 L 19 129/84 10/01/20 00:00 61 16 129/80 09/30/20 23:00 98.5 F 51 L 55 L 20 129/79 09/30/20 22:50 98.3 F 56 L 28 H 130/84 09/30/20 22:15 97.8 F 49 L 18 131/84 09/30/20 20:29 98.3 F 40 L 18 110/87 09/30/20 19:18 43 L 18 106/60 09/30/20 18:56 43 L 18 109/66 09/30/20 18:42 43 L 43 L 09/30/20 18:13 98.0 F 46 L 18 104/79 BP BP BP Pulse Ox 10/01/20 08:00 93 L 10/01/20 07:00 93 L 10/01/20 06:00 94 L 10/01/20 05:00 92 L 10/01/20 04:00 91 L 10/01/20 03:00 93 L 10/01/20 02:00 89 L 10/01/20 01:00 91 L 10/01/20 00:00 90 L 09/30/20 23:00 130/84 93 L 09/30/20 22:50 90 L 09/30/20 22:15 95 09/30/20 20:29 95 09/30/20 19:18 95 09/30/20 18:56 95 09/30/20 18:42 71/59 109/67 09/30/20 18:13 91 L Intake and Output 09/30/20 10/01/20 10/01/20 22:59 06:59 14:59 Intake Total 1050 195 Output Total 925 750 Balance 125 -555 Intake: IV 950 95 Sodium Chloride 0.9% 1, 950 95 000 ml @ 75 mls/hr IV . [id number] Rx#:[id number] Oral 100 100 Output: Urine 925 750 Other: Voiding Method Urinal # Bowel Movements 1 Weight 102.058 kg 109.5 kg GENERAL EXAM: Alert, pleasant 65-year-old gentleman, on 2 L nasal cannula, comfortable in no apparent distress. HEAD: Normocephalic. EYES: Normal reaction of pupils, equal size. NOSE: Clear with pink turbinates. THROAT: No erythema or exudates. NECK: No masses, no JVD. CHEST: No chest wall deformity. LUNGS: Equal air entry with faint crackles in the posterior bases CVS: S1 and S2 normal with no audible murmur, regular rhythm. ABDOMEN: No hepatosplenomegaly, normal bowel sounds, no guarding or rigidity. SPINE: No scoliosis or deformity SKIN: No rashes CENTRAL NERVOUS SYSTEM: No focal deficits, tone is normal in all 4 extremities. EXTREMITIES: There is no peripheral edema. No clubbing, no cyanosis. Peripheral pulses are intact. Results - Laboratory Findings CBC and BMP: 10/01/20 03:32 10/01/20 03:32 PT/INR, D-dimer PT 9.8 sec (9.0-12.0) 09/30/20 18:21 INR 0.9 (<1.2) 09/30/20 18:21 Abnormal lab findings: Abnormal Labs 09/30/20 09/30/20 09/30/20 18:21 18:21 18:33 WBC 11.3 H RBC 3.52 L Hgb 11.6 L Hct 34.2 L Neutrophils # 8.8 H Carbon Dioxide 20 L Creatinine 1.53 H Glucose 133 H POC Glucose (mg/dL) 148 H AST 60 H ALT 52 H Alkaline Phosphatase 160 H 09/30/20 10/01/20 22:48 03:32 WBC RBC 3.36 L Hgb 10.7 L Hct 33.0 L Neutrophils # Carbon Dioxide Creatinine Glucose POC Glucose (mg/dL) 104 H AST ALT Alkaline Phosphatase - Diagnostic Findings Chest x-ray: image reviewed Assessment and Plan Assessment: 1 Dizziness, weakness secondary to junctional bradycardia possibly related to beta blockers. 2 Severe paroxysmal atrial fibrillation 3 Hypertension 4 Chronic tobacco dependence Plan: The patient was seen and evaluated by Dr. Heaton Chest x-ray and labs reviewed Transfer out of the ICU today Echocardiogram reviewed Beta blockers on hold Increase his activity as tolerated Educated regarding the importance of complete smoking cessation NicoDerm patches in place Continue bronchodilators as needed I, the cosigning physician, performed a history & physical examination of the patient. Lungs sounds faint crackles in the bilateral posterior bases. Maintaining good O2 saturations in the 90s on 2 L/m per nasal cannula. I discussed the assessment and plan of care with my nurse practitioner, Thea Cordoba. I attest to the above consultation as dictated by her. Time with Patient: Greater than 30
[2020-10-02] MEDS: LOSARTAN 50 MG TAB PO SCH ×2 (03:26→09:35)
[2020-10-02] MEDS: PANTOPRAZOLE 40 MG TABLET PO SCH (06:15)
[2020-10-02] MEDS: HYDROcodone/APAP 5-325MG 1 EACH TAB PO PRN ×2 (06:18→13:18)
[2020-10-02] MEDS: HEPARIN SODIUM,PORCINE 5,000 UNIT/ML 1 ML VIAL SQ SCH (09:35)
[2020-10-02] MEDS: ASPIRIN 81 MG PO SCH (09:35)
[2020-10-02] MEDS: NICOTINE 14MG/24HR PATCH TRANSDERM SCH (09:35)
[2020-10-02] MEDS: SODIUM CHLORIDE 0.9% 1,000 ML IV SCH (09:35)
[2020-10-02 11:49] VITALS: BP 176/90; PULSE 71; RESP 20; TEMP 97.7
--- NOTE | 2020-10-02 11:59 | P.DS ---
Providers Date of admission: 09/30/20 20:20 Expected date of discharge: 10/02/20 Attending physician: Edil Lester MD Consults: 09/30/20 20:24 Consult Physician Urgent Consulting Provider: Jose Eduardo Lai Consult Reason/Comments: acute chest pain, acute junctional bradycardia, orthostatic hypotension Do you want consulting provider notified?: Already Contacted 10/01/20 07:35 Consult Physician Routine Consulting Provider: Aidee Heaton Consult Reason/Comments: ICU level care for symptomatic bradycardia Do you want consulting provider notified?: Yes Primary care physician: [facility] Course: symptomatic bradycardia EKG with junctional rhythm TYLER hypotension daily smoker , and chew tobacco 65 year old man with history of nicotine abuse presented with dizziness and bradycardia in background of metoprolol therapy. Metoprolol was discontinued and patient monitored on telemetry with no further symptomatic bradycardic events. Followed by cardiology and patient had appropriate chronotropic response to activity off of metoprolol. Pt will be discharged with PCP and cardiology follow up. Metoprolol discontinued on discharge. Assessment: Gen: awake, alert HEENT: normocephalic, atraumatic, good hearing acuity, moist mucous membranes Resp: good air exchange, breathing comfortably with no accessory muscle use CVS: good distal perfusion x 4, GI: soft, NTTP, ND : no SPT, no CVAT MSK: no pitting edema, no clubbing, Aviles catheter not present Neuro: non-focal, moving all extremities Psych: cooperative, euthymic mood Patient Condition at Discharge: Good Plan - Discharge Summary Discharge Rx Participant: Yes New Discharge Prescriptions: New Aspirin 81 mg PO DAILY chew Continue Omeprazole [PriLOSEC] 20 mg PO AC-BRKFST #30 cap Albuterol Inhaler [Ventolin Hfa Inhaler] 1 - 2 puff INHALATION RT-Q6H PRN PRN Reason: Shortness Of Breath Losartan Potassium 100 mg PO DAILY NIFEdipine XL [Procardia XL] 60 mg PO DAILY Discontinued Metoprolol Tartrate [Lopressor] 50 mg PO BID PRN PRN Reason: PULSE OVER 60 Aspirin EC [Ecotrin] 325 mg PO DAILY Discharge Medication List Omeprazole [PriLOSEC] 20 mg PO AC-BRKFST #30 cap 10/14/19 [Rx] Albuterol Inhaler [Ventolin Hfa Inhaler] 1 - 2 puff INHALATION RT-Q6H PRN 08/23/20 [History] Losartan Potassium 100 mg PO DAILY 08/23/20 [History] NIFEdipine XL [Procardia XL] 60 mg PO DAILY 08/23/20 [History] Aspirin 81 mg PO DAILY chew 10/02/20 [Rx] Follow up Appointment(s)/Referral(s): Jose Eduardo Lai MD [STAFF PHYSICIAN] - 10/17/20 3:15 pm Brown Millan [Primary Care Provider] - 10/16/20 11:00 am Patient Instructions/Handouts: Bradycardia (DC)
--- NOTE | 2020-10-02 12:29 | PN ---
PROGRESS NOTE Mr. Tan came into the hospital with bradycardia, symptomatic with junctional rhythm. After stopping the beta jose roberto and he took the last dose of 50 mg at 4:30 p.m. on the . He is now in sinus rhythm and I had him ambulate in the room, but heart rate went up to 90 beats. I advised the patient that he has underlying sick sinus syndrome to avoid beta blockers. I will discharge him on current medications. His BP control is good. He will go home without beta jose roberto, see Dr. Lai in a week or 2 and have a 24-hour Holter performed as an outpatient. Vitals are stable. No JVD. S1, S2 heard normally. Distant heart sounds. Short systolic murmur. Lungs revealed decent air entry. Abdomen and lower extremity exam is unchanged. MMODL / IJN: [id number] /
== END 2020-10-02 13:49 | disposition home or self-care (01) | DRG 309 ==
LOC: EC 18:09 → 2SICU 20:20 → 3SCARD 10-01 11:06
PROVIDERS: ADMIT Internal Medicine; ATTEND Internal Medicine
DX: I49.5 Sick sinus syndrome (principal); N17.9 Acute kidney failure, unspecified; J98.11 Atelectasis; I48.0 Paroxysmal atrial fibrillation; I11.9 Hypertensive heart disease without heart failure; T44.7X5A Adverse effect of beta-adrenoreceptor antagonists, initial encounter; I95.1 Orthostatic hypotension; F41.9 Anxiety disorder, unspecified; R53.1 Weakness; M19.90 Unspecified osteoarthritis, unspecified site; E66.9 Obesity, unspecified; Z68.33 Body mass index [BMI] 33.0-33.9, adult; F17.200 Nicotine dependence, unspecified, uncomplicated; Z71.6 Tobacco abuse counseling; Z79.82 Long term (current) use of aspirin; Z79.899 Other long term (current) drug therapy; Z87.442 Personal history of urinary calculi; Z90.49 Acquired absence of other specified parts of digestive tract; Z87.19 Personal history of other diseases of the digestive system; Z86.59 Personal history of other mental and behavioral disorders; Z87.39 Personal history of other diseases of the musculoskeletal system and connective tissue; Z98.890 Other specified postprocedural states; Z88.6 Allergy status to analgesic agent; Z80.1 Family history of malignant neoplasm of trachea, bronchus and lung; Z80.49 Family history of malignant neoplasm of other genital organs
CPT/HCPCS: 36415; 71045; 71046; 80048; 80053; 83735; 84443; 84484; 85025; 85610; 85730; 93005; 93306; 96361; 96374; 99285

== ENCOUNTER 2021-03-21 14:39 | Emergency (ER) | payer OTHER ==
[2021-03-21 14:42] VITALS: TEMP 98.1
[2021-03-21] MEDS ORDERED: SODIUM CHLORIDE 0.9% 1,000 ML IV STA (15:14)
[2021-03-21] MEDS ORDERED: ONDANSETRON 4 MG/2 ML VIAL IVP STA (15:14)
[2021-03-21] MEDS ORDERED: MORPHINE SULFATE 4 MG/ML SYRINGE IV STA (15:14)
[2021-03-21] MEDS ORDERED: FAMOTIDINE 20 MG/2 ML VIAL IV STA (15:17)
--- NOTE | 2021-03-21 15:18 | ED ---
General Adult HPI - General Chief complaint: Abdominal Pain Stated complaint: kidney stone Time Seen by Provider: 03/21/21 15:02 Source: patient, RN notes reviewed, old records reviewed Mode of arrival: ambulatory Limitations: no limitations - History of Present Illness Initial comments: Patient is a 65-year-old male with past medical history remarkable for atrial fibrillation, hypertension, as well as kidney stones presents emergency Department complaining of a one-day history of right-sided flank pain. Patient states this feels exactly like previous episodes of his kidney stones. He has required surgery on 2 prior occasions to remove the stones. He states he has not required renal stents. He denies any chest pain, shortness of breath, feve rs, chills, cough. He endorses right upper back pain as well as right flank pain. He endorses some mild dysuria. Denies any left-sided pain. He endorses some nausea but denies emesis. He has been able to tolerate by mouth intake over this time. He otherwise denies any acute complaints at this time. Patient's concerned as this seems to be his nephrolithiasis and he wishes to receive treatment before it gets too bad and painful. - Related Data Home Medications Medication Instructions Recorded Confirmed Albuterol Inhaler [Ventolin Hfa 1 - 2 puff INHALATION RT-Q6H PRN 08/23/20 09/30/20 Inhaler] Losartan Potassium 100 mg PO DAILY 08/23/20 09/30/20 NIFEdipine XL [Procardia XL] 60 mg PO DAILY 08/23/20 09/30/20 Previous Rx's Medication Instructions Recorded Omeprazole [PriLOSEC] 20 mg PO AC-BRKFST #30 cap 10/14/19 Aspirin 81 mg PO DAILY chew 10/02/20 HYDROcodone/APAP 5-325MG [Shelby 1 tab PO Q6HR PRN 3 Days #12 tab 03/21/21 5-325] Ibuprofen [Motrin] 400 mg PO Q6HR PRN #28 tab 03/21/21 Tamsulosin [Flomax] 0.4 mg PO DAILY 30 Days #30 cap 03/21/21 Allergies Allergy/AdvReac Type Severity Reaction Status Date / Time NSAIDS (Non-Steroidal AdvReac kidney Verified 03/21/21 14:42 Anti-Inflamma issues Review of Systems ROS Statement: Those systems with pertinent positive or pertinent negative responses have been documented in the HPI. Review of Systems: CONST: Denies fever EYES: Denies blurry vision ENT: Denies nasal congestion C/V: Denies Chest pain RESP: Denies shortness of breath GI: Endorses abdominal pain : Endorses dysuria SKIN: Denies rash. MSK: Denies joint pain. NEURO: Denies headache ROS Other: All systems not noted in ROS Statement are negative. Past Medical History Past Medical History: Atrial Fibrillation, Hypertension Additional Past Medical History / Comment(s): kidney stones, History of Any Multi-Drug Resistant Organisms: None Reported Past Surgical History: Cholecystectomy, Heart Catheterization, Orthopedic Surgery Additional Past Surgical History / Comment(s): Right knee, left shoulder, Past Anesthesia/Blood Transfusion Reactions: No Reported Reaction Past Psychological History: Depression Smoking Status: Current every day smoker Past Alcohol Use History: None Reported Past Drug Use History: None Reported - Past Family History Father History Unknown: Yes Additional Family Medical History / Comment(s): LUNG CANCER Mother History Unknown: Yes Additional Family Medical History / Comment(s): UTERINE CANCER Brother(s) Additional Family Medical History / Comment(s): LUNG CANCER General Exam - General Exam Comments Initial Comments: General: Appears uncomfortable walking around the room secondary to right-sided flank pain. He cannot sit still. HEAD: Normal with no signs of head trauma. EYES: PERRLA, EOMI, conjunctiva normal, no discharge. ENT: Hearing grossly intact, normal oropharynx. RESPIRATORY: Clear breath sounds bilaterally. No wheezes, rales, or rhonchi. C/V: Regular rate and rhythm. S1 and S2 auscultated, no edema, peripheral pulses 2+ and intact throughout ABD: Patient has right-sided flank pain with radiation to the right CVA. Right CVA is tender to percussion. Left CVA is not tender to percussion. There is no suprapubic abdominal pain. There are no peritoneal signs or guarding. EXT: Normal range of motion, no obvious deformity SKIN: No rashes or lesions observed on exposed skin. NEURO: Alert and oriented 4. Limitations: no limitations Course Vital Signs 03/21/21 03/21/21 03/21/21 14:40 17:00 17:34 Temperature 98.1 F Pulse Rate 59 L 96 Respiratory 22 20 Rate Blood Pressure 179/92 162/110 169/109 O2 Sat by Pulse 98 99 Oximetry 03/21/21 17:39 Temperature 98.1 F Pulse Rate 96 Respiratory 20 Rate Blood Pressure 169/109 O2 Sat by Pulse 99 Oximetry Medical Decision Making - Medical Decision Making Based on the patient's presentation and physical exam, I'm concerned for possible kidney stone for the patient as well as possible urinary tract infection or pyelonephritis. We'll start with basic laboratory studies as well as a urinalysis. We will also obtain an ultrasound of the kidneys and bladder to assess for hydronephrosis. Initially, I do not believe that he requires a CT abdomen and pelvis at this time but we will assess based on workup and ultrasound results. Patient will receive Zofran, Pepcid, morphine, as well as a 1 L fluid bolus all IV. He was in agreement with this plan.Patient's laboratory studies are remarkable for a hemolyzed potassium of 5.2 with normal renal function. Urinalysis is unremarkable. Remainder of his labs are unremarkable. Renal ultrasound did not reveal any signs of hydronephrosis. He does not have a distended bladder. On reevaluation, patient states his pain is improved. I did discuss with him the results of his imaging as well as laboratory studies and I believe it is safe for him to be discharged home with follow-up with urology. He also requested to be discharged home and will return if his pain becomes worse. The patient appears to have a nonobstructing right nephrolithiasis. He was in agreement this plan. Strict return precautions were given to the patient. Patient was given 1 more dose of morphine prior to discharge as well as Flomax. I will provide the patient with a prescription for 12 Shelby fives, ibuprofen, Flomax. I instructed the patient to follow up with their PCP in the next 3 days. I provided contact information for follow up with Dr. De Leon of urology. I explained that the patient should return to the emergency department if they experience any worsening symptoms. Strict return precautions were discussed with the patient. The patient expressed understanding of these instructions. I answered all questions that the patient had. The patient was discharged home in improved condition with their prescriptions and follow up information. - Lab Data Result diagrams: 03/21/21 15:48 03/21/21 15:48 Lab Results 07/17/21 07/17/21 07/17/21 Range/Units 15:48 15:48 15:48 WBC 7.5 (3.8-10.6) k/uL RBC 4.26 L (4.30-5.90) m/uL Hgb 13.9 (13.0-17.5) gm/dL Hct 39.3 (39.0-53.0) % MCV 92.1 (80.0-100.0) fL MCH 32.6 (25.0-35.0) pg MCHC 35.4 (31.0-37.0) g/dL RDW 13.5 (11.5-15.5) % Plt Count 252 (150-450) k/uL MPV 7.5 Neutrophils % 74 % Lymphocytes % 18 % Monocytes % 4 % Eosinophils % 2 % Basophils % 1 % Neutrophils # 5.6 (1.3-7.7) k/uL Lymphocytes # 1.4 (1.0-4.8) k/uL Monocytes # 0.3 (0-1.0) k/uL Eosinophils # 0.2 (0-0.7) k/uL Basophils # 0.0 (0-0.2) k/uL Sodium 137 (137-145) mmol/L Potassium 5.2 H (3.5-5.1) mmol/L Chloride 105 (98-107) mmol/L Carbon Dioxide 20 L (22-30) mmol/L Anion Gap 12 mmol/L BUN 16 (9-20) mg/dL Creatinine 1.25 (0.66-1.25) mg/dL Est GFR (CKD-EPI)AfAm 71 (>60 ml/min/1.73 sqM) Est GFR (CKD-EPI)NonAf 61 (>60 ml/min/1.73 sqM) Glucose 106 H (74-99) mg/dL Calcium 10.3 H (8.4-10.2) mg/dL Magnesium 2.3 (1.6-2.3) mg/dL Total Bilirubin 0.6 (0.2-1.3) mg/dL AST 40 (17-59) U/L ALT 29 (4-49) U/L Alkaline Phosphatase 119 (38-126) U/L Total Protein 8.3 H (6.3-8.2) g/dL Albumin 4.8 (3.5-5.0) g/dL Lipase 59 (23-300) U/L Urine Color Yellow Urine Appearance Clear (Clear) Urine pH 5.5 (5.0-8.0) Ur Specific [place] 1.016 (1.001-1.035) Urine Protein Negative (Negative) Urine Glucose (UA) Negative (Negative) Urine Ketones Negative (Negative) Urine Blood Negative (Negative) Urine Nitrite Negative (Negative) Urine Bilirubin Negative (Negative) Urine Urobilinogen <2.0 (<2.0) mg/dL Ur Leukocyte Esterase Negative (Negative) Disposition Clinical Impression: Nephrolithiasis, Flank pain Disposition: HOME SELF-CARE Condition: Fair Instructions (If sedation given, give patient instructions): Kidney Stones (ED) Prescriptions: Tamsulosin [Flomax] 0.4 mg PO DAILY 30 Days #30 cap Ibuprofen [Motrin] 400 mg PO Q6HR PRN #28 tab PRN Reason: Pain HYDROcodone/APAP 5-325MG [Shelby 5-325] 1 tab PO Q6HR PRN 3 Days #12 tab PRN Reason: Pain Is patient prescribed a controlled substance at d/c from ED?: Yes If prescribed controlled substance>3 days was MAPS reviewed?: Prescribed <3 Days Referrals: Brown Millan [Primary Care Provider] - 1-2 days Mark De Leon MD [STAFF PHYSICIAN] - 1-2 days
[2021-03-21 15:55] LABS: Appearance,Urine Clear (Clear); Basophils % (A) 1 %; Bilirubin,Urine Negative (Negative); Blood,Urine Negative (Negative); Color,Urine Yellow; Eosinophils # (A) 0.2 k/uL (0-0.7); Eosinophils % (A) 2 %; Glucose,Urine (UA) Negative (Negative); HCT 39.3 % (39.0-53.0); HGB 13.9 gm/dL (13.0-17.5); Ketones,Urine Negative (Negative); Leukocyte Esterase,Urine Negative (Negative); Lymphocytes # (A) 1.4 k/uL (1.0-4.8); Lymphocytes % (A) 18 %; MCH 32.6 pg (25.0-35.0); MCHC 35.4 g/dL (31.0-37.0); MCV 92.1 fL (80.0-100.0); Mean Platelet Volume 7.5; Monocytes # (A) 0.3 k/uL (0-1.0); Monocytes % (A) 4 %; Neutrophils # (A) 5.6 k/uL (1.3-7.7); Neutrophils % (A) 74 %; Nitrite,Urine Negative (Negative); PH, Urine 5.5 (5.0-8.0); Platelet Count 252 k/uL (150-450); Protein,Urine Negative (Negative); RBC 4.26 m/uL (4.30-5.90); RDW 13.5 % (11.5-15.5); Specific Gravity,Urine 1.016 (1.001-1.035); Urobilinogen,Urine <2.0 mg/dL (<2.0); WBC 7.5 k/uL (3.8-10.6)
[2021-03-21 16:16] LABS: Albumin 4.8 g/dL (3.5-5.0); Calcium 10.3 mg/dL (8.4-10.2); Magnesium 2.3 mg/dL (1.6-2.3); Potassium 5.2 mmol/L (3.5-5.1); Total Bilirubin 0.6 mg/dL (0.2-1.3); Total Protein 8.3 g/dL (6.3-8.2)
--- NOTE | 2021-03-21 17:03 | US ---
EXAMINATION TYPE: US renals and bladder DATE OF EXAM: 03/21/2021 COMPARISON: CT CLINICAL HISTORY: flank pain. concern for pyelo/kidney stone. Right flank pain today; urinary frequen cy; patient stated has had prior renal stones EXAM MEASUREMENTS: Right Kidney: 11.0 x 5.0 x 5.1 cm Left Kidney: 12.9 x 8.0 x 7.0 cm Post Void Residual Volume: not assessed on EC patient Right Kidney: lateral upper cyst = 2.3 x 2.2 x 2.1cm Left Kidney: multiple renal cysts seen with largest at upper pole = 4.3 x 4.8 x 4.9cm. Bladder: thickened wall at 5.8mm; prominent prostate seen posteriorly Bilateral Jets seen: yes IMPRESSION: Bilateral renal cortical cysts. No evidence of solid renal mass or obstruction. Mild urinary bladder wall thickening could relate to some nonspecific cystitis.
[2021-03-21] MEDS ORDERED: MORPHINE SULFATE 4 MG/ML SYRINGE IVP STA (17:13)
[2021-03-21] MEDS ORDERED: TAMSULOSIN 0.4 MG CAP.ER.24H PO STA (17:13)
[2021-03-21 17:32] VITALS: PULSE 96; RESP 20
[2021-03-21 17:35] VITALS: BP 169/109
== END 2021-03-21 17:39 | disposition home or self-care (01) ==
LOC: EC 14:39
DX: N20.0 Calculus of kidney (principal); I48.91 Unspecified atrial fibrillation; I10 Essential (primary) hypertension; F32.9 Major depressive disorder, single episode, unspecified; F17.200 Nicotine dependence, unspecified, uncomplicated; Z90.49 Acquired absence of other specified parts of digestive tract; Z95.5 Presence of coronary angioplasty implant and graft
CPT/HCPCS: 36415; 80053; 83690; 83735; 85025; 81003; 76770; 99284; 96374; 96375 ×3; 96361 ×2; J2270; J2405; 96376

== ENCOUNTER → 2022-05-25 | Outpatient (CLI) | payer OTHER ==
--- NOTE | 2022-05-25 12:39 | XR ---
Limited cervical spine HISTORY: Radiculopathy, cervical region 3 views of cervical spine correlated to CT cervical spine 08/23/2020 There is multilevel spondylosis. Cervical vertebral bodies show preserved height and bone mineralizat ion. Minimal anterolisthesis grade 1 C2-3, retrolisthesis grade 1 C3-4. Loss of disc height is presen t at intervertebral levels greatest at C3-4, C5-6 and C6-7. Facet arthropathy changes are present. Th e vertebral soft tissues are normal. Patient is edentulous. Atherosclerotic vascular calcifications a re present in the distribution of the carotid arteries. IMPRESSION: Degenerative disc disease and facet arthropathy.
== END | disposition home or self-care (01) ==
LOC: RADXRMAIN 12:00
PROVIDERS: ATTEND Family Medicine
DX: M47.22 Other spondylosis with radiculopathy, cervical region (principal); M50.123 Cervical disc disorder at C6-C7 level with radiculopathy
CPT/HCPCS: 72040

== ENCOUNTER → 2022-05-25 | Outpatient (CLI) | payer OTHER ==
[2022-05-25 12:22] LABS: Appearance,Urine Clear (Clear); Bilirubin,Urine Negative (Negative); Blood,Urine Negative (Negative); Color,Urine Yellow; Glucose,Urine (UA) Negative (Negative); Ketones,Urine Negative (Negative); Leukocyte Esterase,Urine Negative (Negative); Nitrite,Urine Negative (Negative); PH, Urine 5.5 (5.0-8.0); Protein,Urine Trace (Negative); Specific Gravity,Urine 1.017 (1.001-1.035); Urobilinogen,Urine <2.0 mg/dL (<2.0)
[2022-05-25 18:38] LABS: Basophils # (A) 0.04 X 10*3/uL (0.00-0.10); Basophils % (A) 0.5 %; Eosinophils # (A) 0.32 X 10*3/uL (0.04-0.35); Eosinophils % (A) 4.2 %; HCT 35.9 % (39.6-50.0); HGB 11.5 g/dL (13.0-17.0); Immature Grans, Automated 0.3 %; Lymphocytes # (A) 1.96 X 10*3/uL (0.90-5.00); Lymphocytes % (A) 25.8 %; MCH 31.7 pg (27.0-32.0); MCV 98.9 fL (80.0-97.0); Mean Platelet Volume 10.6 fL (9.5-12.2); Monocytes % (A) 7.9 %; NRBC Per 100 WBC 0 /100 WBCS (0.0-0.0); Neutrophils # (A) 4.66 X 10*3/uL (1.80-7.70); Neutrophils % (A) 61.3 %; Platelet Count 266 X 10*3/uL (140-440); RBC 3.63 X 10*6/uL (4.40-5.60); RDW 13.4 % (11.5-14.5)
[2022-05-25 20:26] LABS: ALT 17 U/L (10-49); AST 22 U/L (14-35); African American GFR (CKD) 62.2 (60.0-200.0); Albumin 4.2 g/dL (3.8-4.9); Albumin/Globulin Ratio 1.44 (1.60-3.17); Alkaline Phosphatase 136 U/L (41-126); BUN/Creat Ratio 10.36 Ratio (12.00-20.00); Blood Urea Nitrogen 14.3 mg/dL (9.0-27.0); Carbon Dioxide 24.4 mmol/L (20.0-27.5); Chloride 107 mmol/L (96-109); Chol/HDL Ratio 4.46 Ratio; Globulin 2.9 g/dL (1.6-3.3); Glucose 100 mg/dL (70-110); LDL Cholesterol,Calculated 124.7 mg/dL (0.0-131.0); Magnesium 2.3 mg/dL (1.5-2.4); Non-African American GFR(CKD) 53.7 (60.0-200.0); Sodium 142 mmol/L (135-145)
== END | disposition home or self-care (01) ==
LOC: LABWHC1 11:22
PROVIDERS: ATTEND Internal Medicine Interventional Cardiology
DX: Z00.00 Encounter for general adult medical examination without abnormal findings (principal); I10 Essential (primary) hypertension; I48.0 Paroxysmal atrial fibrillation; I25.10 Atherosclerotic heart disease of native coronary artery without angina pectoris; L98.8 Other specified disorders of the skin and subcutaneous tissue
CPT/HCPCS: 36415; 80053; 80061; 81003; 83735; 84153; 84443; 85025

== ENCOUNTER → 2022-06-29 | Outpatient (CLI) | payer OTHER ==
--- NOTE | 2022-06-29 14:56 | CTL ---
EXAMINATION TYPE: CT Low Dose Lung DATE OF EXAM ORDERED: 06/29/2022 HISTORY: 66-year-old male history of current tobacco use. 20 pack-year history smoking. Lung cancer s creening CT DLP: 117.[address] CTDI: 3.4 mGy Automated exposure control for dose reduction was used. SCREENING VISIT: Baseline COMPARISON: 10/13/2019 TECHNIQUE: Low dose computed tomography scan was performed through the chest with coronal and sagitta l reconstructions. CT DIAGNOSTIC QUALITY: Satisfactory FINDINGS: Heart normal size without pericardial effusion. Minimal RCA and LAD coronary artery calcifications. Borderline ectatic aortic root at 3.5 cm. Conventional arch was a branching anatomy. Borderline sized 1 cm low right paratracheal lymph node nonspecific, probably reactive. Prominent but not enlarged 1.1 cm subcarinal node. Groundglass nodularity right hilar/hilar region measuring up to 7 mm. More extensive groundglass garza ge along with some tree-in-bud opacities dependently in the left lower lobe. Additional strandy lower lung opacities likely atelectasis. A triangle-shaped 6 mm subpleural pulmonary nodule posterior left upper lung along the major fissure was present previously suggesting a benign intrafissural lymph node. Mild diffuse bronchial wall thic kening. Central airways appear clear. No pleural effusion. Tiny hiatal hernia. Visualized upper abdomen otherwise shows only diminished attenuation of the hepat ic parenchyma suggesting fatty infiltration. Bones: No osseous destructive process. IMPRESSION: 1. Lung RADS 3, probably benign; a 7 mm right hilar pulmonary nodule is likely infectious/inflammator y given the additional scattered tree-in-bud and groundglass infiltrates, greatest in the left lower lobe. Correlate for infectious or aspiration pneumonitis. Six-month follow-up CT after treatment to e nsure clearance and exclude any suspicious underlying pulmonary nodules. 2. Tiny hiatal hernia. Hepatic steatosis. CT LUNG RAD AND CT CHEST RECOMMENDATION: Lung-Rad 3 Probably Benign: 6 month follow-up LDCT. S Modifier (other clinically significant findings): None
== END | disposition home or self-care (01) ==
LOC: RADCTMAIN 12:19
PROVIDERS: ATTEND Internal Medicine
DX: K44.9 Diaphragmatic hernia without obstruction or gangrene (principal); K76.0 Fatty (change of) liver, not elsewhere classified; Z87.891 Personal history of nicotine dependence
CPT/HCPCS: 71271

== ENCOUNTER → 2022-12-28 | Outpatient (CLI) | payer OTHER ==
--- NOTE | 2022-12-28 11:27 | CTL ---
EXAMINATION TYPE: CT Low Dose Lung DATE OF EXAM ORDERED: 12/28/2022 HISTORY: . Lung cancer screening CT DLP: 126.[address] CTDI: 3.4 mGy Automated exposure control for dose reduction was used. SCREENING VISIT: COMPARISON: 06/29/2022 TECHNIQUE: Low dose computed tomography scan was performed through the chest at 1 mm thick sections a nd reconstructed images in multiple planes at 1 mm and [address] DIAGNOSTIC QUALITY: Satisfactory FINDINGS: Heart normal size without pericardial effusion. Minimal RCA and LAD coronary artery calcifications. Borderline ectatic aortic root at 3.5 cm. Conventional arch was a branching anatomy. Borderline sized 1 cm low right paratracheal lymph node nonspecific, probably reactive. Prominent but not enlarged 1. 1 cm subcarinal node. Groundglass nodularity right hilar/hilar region measuring up to 7 mm. More extensive groundglass garza ge along with some tree-in-bud opacities dependently in the left lower lobe noted on the prior exam d emonstrated near complete resolution on today's exam. A 6 mm subpleural pulmonary nodule posterior left upper lung along the major fissure was present prev iously and is stable. There also is a 2 mm nodule image 18 and left lower lobe superior segment. Mild diffuse bronchial wall thickening. Central airways appear clear. No pleural effusion. Tiny hiatal hernia. Visualized upper abdomen otherwise shows only diminished attenuation of the hepat ic parenchyma suggesting fatty infiltration. Suspect renal cysts Mild coronary artery calcification n oted. Bones: Hypertrophic and degenerative change of the spine IMPRESSION: 1. Interval resolution of left lower lobe. Groundglass infiltrate. 2. Stable 6 mm left upper lobe pulmonary nodule. Suspect additional 2 mm nodule in the left lower lob e axial image 18 to small to characterize. 3. Suspect bilateral renal cysts only partially included in the [id number] which have been reporte d by previous ultrasound. CT LUNG RAD AND CT CHEST RECOMMENDATION: Lung-Rad 3 Probably Benign: 6 month follow-up LDCT.
== END | disposition home or self-care (01) ==
LOC: RADCTMAIN 10:41
PROVIDERS: ATTEND Family Medicine
DX: Z12.2 Encounter for screening for malignant neoplasm of respiratory organs (principal); F17.210 Nicotine dependence, cigarettes, uncomplicated; R91.8 Other nonspecific abnormal finding of lung field
CPT/HCPCS: 71271